=== PATIENT | male | born 1995 | race Caucasian/White ===

== ENCOUNTER 2019-06-03 20:51 | Emergency (ER) | payer SELFPAY ==
--- NOTE | 2019-06-03 22:00 | ER Document Report ---
ED Medical Screen (RME) - General Chief Complaint: Shortness Of Breath Stated Complaint: SHORTNESS OF BREATH Time Seen by Provider: 06/03/19 21:51 Primary Care Provider: MARGARET BILLY MD [Primary Care Provider] - Follow up as needed Notes: Patient is a 24-year-old male presents emergency department with a chief complaint of abdominal discomfort and shortness of breath. Patient reports abdominal discomfort and that is generalized started yesterday. Patient reports he has a decreased appetite but feels like he is having hunger pains. Patient also reports gas bubbles. Patient reports feeling bloated. Patient reports her last bowel movement was yesterday and normal for him. Patient reports earlier tonight he took a few hits of THC in the vape form and afterwards felt some shortness of breath and anxiety. Patient reports that he is concerned that maybe it was laced with something. Patient reports he does have a history of anxiety but does not take anything for it. TRAVEL OUTSIDE OF THE [place] IN LAST 30 DAYS: No - Related Data Allergies/Adverse Reactions: Penicillins Allergy (Unknown, Verified 03/10/12 12:36) Past Medical History - Social History Frequency of alcohol use: None Drug Abuse: Marijuana - Immunizations Immunizations up to date: Yes Hx Diphtheria, Pertussis, Tetanus Vaccination: Yes Physical Exam - Vital signs Vitals: Temp Pulse Resp BP Pulse Ox 98.0 F 96 18 133/78 H 99 06/03/19 21:38 06/03/19 21:38 06/03/19 21:38 06/03/19 21:38 06/03/19 21:38 - Respiratory Respiratory status: No respiratory distress Chest status: Nontender Breath sounds: Normal Chest palpation: Normal Course - Re-evaluation Re-evalutation: 06/03/19 22:00 I have greeted and performed a rapid initial assessment of this patient. A comprehensive ED assessment and evaluation of the patient, analysis of test results and completion of the medical decision making process will be conducted by additional ED providers. - Vital Signs Vital signs: Temp Pulse Resp BP Pulse Ox 98.0 F 96 18 133/78 H 99 06/03/19 21:38 06/03/19 21:38 06/03/19 21:38 06/03/19 21:38 06/03/19 21:38 Doctor's Discharge - Discharge Referrals: MARGARET BILLY MD [Primary Care Provider] - Follow up as needed
--- NOTE | 2019-06-03 22:32 | RADIOLOGY REPORT (SQ) ---
EXAM DESCRIPTION: XR CHEST 2 VIEWS COMPLETED DATE/TME: 06/03/2019 21:58 CLINICAL HISTORY: 24 years, Male, shortness of breath COMPARISON: None. NUMBER OF VIEWS: Two TECHNIQUE: Frontal and lateral radiograph are obtained LIMITATIONS: None. FINDINGS: Cardiac and mediastinal contours are normal in appearance. Lungs are clear. No pleural effusion or pneumothorax. IMPRESSION: No acute disease. copyright 2010 [employer]- All Rights Reserved
--- NOTE | 2019-06-03 22:36 | RADIOLOGY REPORT (SQ) ---
EXAM DESCRIPTION: XR ABDOMEN 2 VIEWS SUPINE ERECT COMPLETED DATE/TME: 06/03/2019 21:58 CLINICAL HISTORY: 24 years Male, abdominal pain and bloating COMPARISON: None. NUMBER OF VIEWS/TECHNIQUE: 3 FINDINGS: Intestinal gas pattern is within normal limits. Paucity of bowel gas. No suspicious calcification. Grossly intact skeletal structures. IMPRESSION: No acute findings.
[2019-06-03 23:04] LABS: ABSOLUTE LYMPHOCYTES (AUTO) 1.6 10^3/uL (0.5-4.7); ABSOLUTE MONOCYTES (AUTO) 0.7 10^3/uL (0.1-1.4); ABSOLUTE NEUT (AUTO) 8.6 10^3/uL (1.7-8.2); BASOPHILS % (AUTO) 0.3 % (0-2); EOSINOPHILS % (AUTO) 0.2 % (0-6); HEMATOCRIT 48.6 % (37.9-51.0); LYMPHOCYTES % (AUTO) 14.3 % (13-45); MEAN CORPUSCULAR HGB CONC 34.9 g/dL (32.0-36.0); MEAN CORPUSCULAR VOLUME 89 fl (80-97); MONOCYTES % (AUTO) 6.6 % (3-13); PLATELET COUNT 182 10^3/uL (150-450); RED BLOOD COUNT 5.47 10^6/uL (4.35-5.55); RED CELL DISTRIBUTION WIDTH 12.7 % (11.5-14.0); SEGMENTED NEUTROPHILS % (AUTO) 78.6 % (42-78); TOTAL CELLS COUNTED % (AUTO) 100 %
[2019-06-03 23:11] LABS: APPEARANCE,URINE SLIGHTLY-CLOUDY; BILIRUBIN,URINE NEGATIVE (NEGATIVE); COLOR,URINE YELLOW; GLUCOSE, URINE NEGATIVE (NEGATIVE); KETONES,URINE 20 mg/dL (NEGATIVE); LEUKOCYTE ESTERASE,URINE NEGATIVE (NEGATIVE); NITRITE,URINE NEGATIVE (NEGATIVE); PROTEIN,URINE 30 mg/dL (NEGATIVE); URINE SPECIFIC GRAVITY 1.027; UROBILINOGEN,URINE NEGATIVE mg/dL (<2.0)
[2019-06-03 23:22] LABS: ALBUMIN 5.6 g/dL (3.5-5.0); ALKALINE PHOSPHATASE 79 U/L (38-126); ANION GAP 13 (5-19); ASPARTATE AMINO TRANSFERASE 29 U/L (17-59); BILIRUBIN,DIRECT 0.2 mg/dL (0.0-0.4); BLOOD UREA NITROGEN 12 mg/dL (7-20); CALCIUM 10.7 mg/dL (8.4-10.2); CARBON DIOXIDE 24 mmol/L (22-30); CHLORIDE 103 mmol/L (98-107); GLUCOSE 94 mg/dL (75-110); TOTAL PROTEIN 8.7 g/dL (6.3-8.2)
[2019-06-03 23:29] LABS: URINE AMPHETAMINES SCREEN NEGATIVE; URINE BARBITURATES SCREEN NEGATIVE; URINE BENZODIAZEPINES SCREEN NEGATIVE; URINE COCAINE SCREEN NEGATIVE; URINE METHADONE SCREEN NEGATIVE; URINE PHENCYCLIDINE SCREEN NEGATIVE
[2019-06-03 23:30] LABS: URINE MARIJUANA (THC) SCREEN UNCONFIRMED POSITIVE
--- NOTE | 2019-06-04 01:37 | ER Document Report ---
ED General - General Chief Complaint: Shortness Of Breath Stated Complaint: SHORTNESS OF BREATH Time Seen by Provider: 06/03/19 21:51 Primary Care Provider: MARGARET BILLY MD [PEDIATRICS] - Follow up in 3-5 days Notes: 24-year-old male presents with body tingling, dyspnea, loss of appetite, gagging with eating, and abdominal discomfort today. Patient states he has been vaping THC extract and is unsure if it was laced with something. Patient also states he has a history of anxiety and is feeling anxious. Patient denies being on anything for anxiety. Patient denies any fever, nausea/vomiting, diarrhea, c onstipation, chest pain. TRAVEL OUTSIDE OF THE [place] IN LAST 30 DAYS: No - Related Data Allergies/Adverse Reactions: Penicillins Allergy (Unknown, Verified 03/10/12 12:36) Past Medical History - Social History Smoking Status: Former Smoker Frequency of alcohol use: None Drug Abuse: Marijuana Family History: None Patient has suicidal ideation: No Patient has homicidal ideation: No - Immunizations Immunizations up to date: Yes Hx Diphtheria, Pertussis, Tetanus Vaccination: Yes Review of Systems - Review of Systems Notes: Constitutional: Positive for body tingling. Negative for fever. HENT: Negative for sore throat. Eyes: Negative for visual changes. Cardiovascular: Negative for chest pain. Respiratory: Positive for shortness of breath. Gastrointestinal: Positive for abdominal cramping, nausea/vomiting. Negative for diarrhea. Genitourinary: Negative for dysuria. Musculoskeletal: Negative for back pain. Skin: Negative for rash. Neurological: Negative for headaches, weakness or numbness. 10 point ROS negative except as marked above and in HPI. Physical Exam - Vital signs Vitals: Temp Pulse Resp BP Pulse Ox 98.0 F 96 18 133/78 H 99 06/03/19 21:38 06/03/19 21:38 06/03/19 21:38 06/03/19 21:38 06/03/19 21:38 - Notes Notes: GENERAL: Well-appearing, well-nourished and in no acute distress. Mildly anxious. HEAD: Atraumatic, normocephalic. EYES: Pupils equal round and reactive to light, extraocular movements intact, sclera anicteric, conjunctiva are normal. NECK: Normal range of motion, supple without lymphadenopathy or JVD. LUNGS: Breath sounds clear to auscultation bilaterally and equal. No wheezes rales or rhonchi. HEART: Regular rate and rhythm without murmurs, rubs or gallops. ABDOMEN: Soft, nontender. No guarding, no rebound. No masses appreciated. EXTREMITIES: Normal range of motion, no pitting or edema. No clubbing or cyanosis. NEUROLOGICAL: Cranial nerves II through XII grossly intact. Normal speech, normal gait. PSYCH: Normal mood, normal affect. SKIN: Warm, Dry, normal turgor, no rashes or lesions noted. Course - Re-evaluation Re-evalutation: 06/04/19 nontoxic, well-appearing 24-year-old male presents with body tingling, dyspnea, loss of appetite, gagging with eating and states he has been vaping THC. Patient also has abdominal discomfort. Patient is non-hypoxic, not tachycardic, afebrile. Abdomen soft nontender. Regular rate and rhythm lungs clear to auscultation bilaterally. PE is otherwise unremarkable. Lab work is reassuring. Patient is p.o. tolerant. Discussed all results with patient. Patient prescribed Atarax for anxiety. Patient given close follow-up with PCP. Strict return precautions given. Patient voices understanding and agrees with plan of care. - Vital Signs Vital signs: Temp Pulse Resp BP Pulse Ox 98.2 F 81 16 135/87 H 99 06/04/19 00:56 06/04/19 00:56 06/04/19 00:56 06/04/19 00:56 06/04/19 00:56 - Laboratory Result Diagrams: 06/03/19 22:50 06/03/19 22:50 Laboratory results interpreted by me: 06/03/19 06/03/19 06/03/19 22:50 22:50 22:50 WBC 11.0 H Absolute Neuts (auto) 8.6 H Seg Neutrophils % 78.6 H Calcium 10.7 H Total Protein 8.7 H Albumin 5.6 H Urine Protein 30 H Urine Ketones 20 H Urine Ascorbic Acid 40 H Discharge - Discharge Clinical Impression: Nausea, Current cannabis vaping on some days Dyspnea Qualifiers: Dyspnea type: shortness of breath Qualified Code(s): R06.02 - Shortness of breath Condition: Stable Disposition: HOME, SELF-CARE Additional Instructions: Your work-up today was reassuring. Your chest x-ray was normal. Please take Atarax as needed for anxiety. Please follow-up with your primary care doctor listed in 3 to 5 days. Return immediately to ER if you start having any worsening symptoms, including abdominal pain, nausea/vomiting, fever, chest pain, worsening shortness of breath, coughing up blood, or any other symptoms that are concerning to you. Prescriptions: Hydroxyzine HCl [Atarax 10 mg Tablet] 50 mg PO Q6 #20 tablet Referrals: MARGARET BILLY MD [PEDIATRICS] - Follow up in 3-5 days
[2019-06-04 01:49] VITALS: BP 139/80
--- NOTE | 2019-06-04 13:03 | EKG REPORT ---
SEVERITY:- NORMAL ECG - SINUS RHYTHM : Confirmed by: Iram Flaherty 04-Jun-2019 13:02:16
== END 2019-06-04 01:49 | disposition home or self-care (01) ==
LOC: ER 20:51
DX: R11.0 Nausea (principal); R06.02 Shortness of breath; R06.00 Dyspnea, unspecified; F12.90 Cannabis use, unspecified, uncomplicated; Z88.0 Allergy status to penicillin
CPT/HCPCS: 36415; 71046; 74019; 80053; 80307; 81001; 83690; 85025; 93005; 93010; 99285

== ENCOUNTER 2019-06-09 18:23 | Emergency (ER) | payer SELFPAY ==
[2019-06-09] MEDS ORDERED: ASPIRIN 81 MG TABLET, CHEWABLE PO ONE (20:05)
--- NOTE | 2019-06-09 20:05 | ER Document Report ---
ED Medical Screen (RME) - General Chief Complaint: Chest Pain Stated Complaint: CHEST PAIN Time Seen by Provider: 06/09/19 20:01 Mode of Arrival: Ambulatory Information source: Patient Notes: 24-year-old male presented to ED for complaint of chest pain. He states last time he came in here for chest pain he was having an anxiety attack but he is not having any anxious surgery today. He states he has been having chest pain is about 2 or 3 this afternoon. He denies any shortness of breath or pain in his arm. He states he was sweating a little bit earlier. He is alert oriented respirations regular nonlabored speaking in full sentences. He states he has no pain right now but earlier it was a 4. He states he smoked for 2 years but quit in January denies use of alcohol does smoke weed. I have greeted and performed a rapid initial assessment of this patient. A comprehensive ED assessment and evaluation of the patient, analysis of test results and completion of medical decision making process will be conducted by an additional ED providers. TRAVEL OUTSIDE OF THE [place] IN LAST 30 DAYS: No - Related Data Allergies/Adverse Reactions: Penicillins Allergy (Unknown, Verified 06/09/19 20:00) Past Medical History - Immunizations Immunizations up to date: Yes Hx Diphtheria, Pertussis, Tetanus Vaccination: Yes Physical Exam - Vital signs Vitals: Temp Pulse Resp BP Pulse Ox 98.1 F 88 18 139/81 H 100 06/09/19 19:59 06/09/19 19:59 06/09/19 19:59 06/09/19 19:59 06/09/19 19:59 Course - Vital Signs Vital signs: Temp Pulse Resp BP Pulse Ox 98.1 F 88 18 139/81 H 100 06/09/19 19:59 06/09/19 19:59 06/09/19 19:59 06/09/19 19:59 06/09/19 19:59
[2019-06-09 20:52] LABS: ABSOLUTE LYMPHOCYTES (AUTO) 1.4 10^3/uL (0.5-4.7); ABSOLUTE MONOCYTES (AUTO) 0.4 10^3/uL (0.1-1.4); ABSOLUTE NEUT (AUTO) 3.8 10^3/uL (1.7-8.2); BASOPHILS % (AUTO) 0.2 % (0-2); EOSINOPHILS % (AUTO) 0.7 % (0-6); HEMOGLOBIN 15.9 g/dL (13.5-17.0); LYMPHOCYTES % (AUTO) 24.1 % (13-45); MEAN CORPUSCULAR HEMOGLOBIN 31.1 pg (27.0-33.4); MEAN CORPUSCULAR HGB CONC 35.3 g/dL (32.0-36.0); MEAN CORPUSCULAR VOLUME 88 fl (80-97); MONOCYTES % (AUTO) 7.1 % (3-13); PLATELET COUNT 176 10^3/uL (150-450); RED CELL DISTRIBUTION WIDTH 12.5 % (11.5-14.0); SEGMENTED NEUTROPHILS % (AUTO) 67.9 % (42-78); TOTAL CELLS COUNTED % (AUTO) 100 %; WHITE BLOOD COUNT 5.6 10^3/uL (4.0-10.5)
--- NOTE | 2019-06-09 20:52 | RADIOLOGY REPORT (SQ) ---
EXAM DESCRIPTION: [facility]: XR CHEST 2 VIEWS Views: 2 CLINICAL HISTORY: 24 years Male; Chest pain and sweating; COMPARISON: 06/03/2019 FINDINGS: Lungs: Lungs are clear, with no focal infiltrate, pneumothorax, or pleural effusion. No pulmonary nodules. Mediastinum: Mediastinum is within normal limits for this positioning. Bones: Bony structures are unremarkable. IMPRESSION: 1. No acute cardiothoracic abnormality.
[2019-06-09 21:04] LABS: ALBUMIN 5.1 g/dL (3.5-5.0); ALKALINE PHOSPHATASE 71 U/L (38-126); ANION GAP 11 (5-19); ASPARTATE AMINO TRANSFERASE 26 U/L (17-59); BILIRUBIN,DIRECT 0.2 mg/dL (0.0-0.4); BILIRUBIN,TOTAL 0.8 mg/dL (0.2-1.3); BLOOD UREA NITROGEN 13 mg/dL (7-20); CARBON DIOXIDE 25 mmol/L (22-30); CHLORIDE 104 mmol/L (98-107); GLUCOSE 88 mg/dL (75-110); POTASSIUM 4.2 mmol/L (3.6-5.0); TOTAL PROTEIN 8.1 g/dL (6.3-8.2)
--- NOTE | 2019-06-10 00:59 | ER Document Report ---
ED General - General Chief Complaint: Chest Pain Stated Complaint: CHEST PAIN Time Seen by Provider: 06/09/19 20:01 Primary Care Provider: NIKKI KEENAN MD [ACTIVE STAFF] - Follow up in 1 week Mode of Arrival: Ambulatory Notes: Patient is a 24-year-old male that comes to the emergency department for chief complaint of an episode today where he felt like his heart rate was racing, he felt discomfort over the front of his chest, he states he felt extremely anxious and he took a Vistaril that he was prescribed for this previously, he states symptoms did not go away when he took it so he came in for evaluation. Symptoms did resolve after this. He states he was seen previously for the same and diagnosed with anxiety. He smokes marijuana occasionally, stop smoking cigarettes 2 months ago, denies personal or family history of cardiac disease, denies recreational drugs, denies caffeine over the past couple of days. He denies any surgeries or diagnosed medical history. He denies recent long distance travel, lower extremity swelling, or family history of blood clots. He denies trauma. TRAVEL OUTSIDE OF THE [place] IN LAST 30 DAYS: No - Related Data Allergies/Adverse Reactions: Penicillins Allergy (Unknown, Verified 06/09/19 20:00) Past Medical History - General Information source: Patient - Social History Smoking Status: Former Smoker Frequency of alcohol use: None Drug Abuse: Marijuana Lives with: Family Family History: None Patient has suicidal ideation: No Patient has homicidal ideation: No Psychiatric Medical History: Reports: Hx Anxiety Surgical Hx: Negative - Immunizations Immunizations up to date: Yes Hx Diphtheria, Pertussis, Tetanus Vaccination: Yes Review of Systems - Review of Systems Constitutional: See HPI EENT: No symptoms reported Cardiovascular: See HPI Respiratory: No symptoms reported Gastrointestinal: No symptoms reported Genitourinary: No symptoms reported Male Genitourinary: No symptoms reported Musculoskeletal: No symptoms reported Skin: No symptoms reported Hematologic/Lymphatic: No symptoms reported Neurological/Psychological: See HPI Physical Exam - Vital signs Vitals: Temp Pulse Resp BP Pulse Ox 98.1 F 88 18 139/81 H 100 06/09/19 19:59 06/09/19 19:59 06/09/19 19:59 06/09/19 19:59 06/09/19 19:59 - Notes Notes: GENERAL: Alert, interacts well. Appears anxious but is not in distress HEAD: Normocephalic, atraumatic. EYES: Pupils equal, round, and reactive to light. Extraocular movements intact. ENT: Oral mucosa moist, tongue midline. Oropharynx unremarkable. Airway patent. LUNGS: Clear to auscultation bilaterally, no wheezes, rales, or rhonchi. No respiratory distress. HEART: Regular rate and rhythm. No murmur ABDOMEN: Soft, non-tender. Non-distended. Bowel sounds present in all 4 quadrants. GENITOURINARY: Deferred EXTREMITIES: Moves all 4 extremities spontaneously. No edema, normal radial and dorsalis pedis pulses bilaterally. No cyanosis. BACK: no cervical, thoracic, lumbar midline tenderness. No saddle anesthesia, normal distal neurovascular exam. Moves all extremities in full range of motion. NEUROLOGICAL: Alert and oriented x3. Normal speech. Cranial nerves II through XII grossly intact. PSYCH: Talks persistently, anxiously, I occasionally have to interrupt Course - Re-evaluation Re-evalutation: Patient talks endlessly about the symptoms he glucose and the possibilities of what he could have. I did finally explain patient's results at length. Patient has a heart score of 0. I do not see any evidence of pericarditis, pneumothorax, or any other concerning finding. CBC, chemistry, troponin negative. Chest x- ray and EKG unremarkable. Patient was very reassured by this, he has a lot of questions. Patient sleeps poorly, is frequently very anxious, frequently very stressed out. He does state that the Vistaril helps and he has plenty of this. He asked me a lot of details about taking this and about other options. I feel that patient needs to be on a chronic antianxiety medication daily with Vistaril for breakthrough and he agrees. Clinical picture is most consistent with anxiety and panic attacks and patient currently has no symptoms. Either way patient is stable for discharge. I did discuss symptoms to return for. Patient is not suicidal or homicidal. Patient states appreciation and agreement. Stable at time of discharge. - Vital Signs Vital signs: Temp Pulse Resp BP Pulse Ox 97.9 F 74 18 139/83 H 99 06/10/19 02:17 06/10/19 02:17 06/10/19 02:17 06/10/19 02:17 06/10/19 02:17 - Laboratory Result Diagrams: 06/09/19 20:18 06/09/19 20:18 Laboratory results interpreted by me: 06/09/19 20:18 Albumin 5.1 H - EKG Interpretation by Me Additional EKG results interpreted by me: EKG shows sinus rhythm at a rate of 85, QTC of 419, normal axis, no T wave inversions or ST segment changes in consecutive leads Discharge - Discharge Clinical Impression: Heart palpitations, Atypical chest pain, Anxiety Condition: Stable Disposition: HOME, SELF-CARE Additional Instructions: Your work-up does not show any concerning findings. Your evaluation is reassuring. I suspect this is from a rise in adrenaline, we refer to this as a panic attack. Try to improve your sleeping habits, go to bed at the same time every night, consider [id number] remedies such as melatonin, follow-up with primary care for additional management of anxiety. Continue Atarax as needed for anxiety/panic attack, you can take 1 to 2 pills every 6 hours as needed for this. Return if you worsen including worsening symptoms that are not resolved, passing out, fever, or any other concerning symptoms. Referrals: NIKKI KEENAN MD [ACTIVE STAFF] - Follow up in 1 week
[2019-06-10 02:08] VITALS: BP 139/83
--- NOTE | 2019-06-10 19:38 | EKG REPORT ---
SEVERITY:- NORMAL ECG - SINUS RHYTHM : Confirmed by: Marisela Rodriges MD 10-Jun-2019 19:37:08
== END 2019-06-10 02:07 | disposition home or self-care (01) ==
LOC: ER 18:23
DX: R00.2 Palpitations (principal); R07.89 Other chest pain; F41.9 Anxiety disorder, unspecified; Z79.899 Other long term (current) drug therapy; Z87.891 Personal history of nicotine dependence
CPT/HCPCS: 36415; 71046; 80053; 84484; 85025; 93005; 93010; 99285

== ENCOUNTER 2019-06-14 18:14 | Emergency (ER) | payer SELFPAY ==
[2019-06-14 18:23] VITALS: BP 140/74
--- NOTE | 2019-06-14 19:26 | ER Document Report ---
HPI - HPI Time Seen by Provider: 06/14/19 19:22 Pain Level: 2 Notes: 24-year-old male patient presents emergency department chief complaint of request for Tdap and request for medication refill. Patient reports he has severe anxiety and takes hydroxyzine. Patient states today he stepped on a nan nail and he cleaned the area well however he has not had a Tdap in 10 years. - REPRODUCTIVE Reproductive: DENIES: : Past Medical History - General Information source: Patient - Social History Smoking Status: Never Smoker Family History: None Patient has suicidal ideation: No Patient has homicidal ideation: No Psychiatric Medical History: Reports: Hx Anxiety - Immunizations Immunizations up to date: Yes Hx Diphtheria, Pertussis, Tetanus Vaccination: Yes Vertical Provider Document - CONSTITUTIONAL Notes: PHYSICAL EXAMINATION: GENERAL: Well-appearing, well-nourished and in no acute distress. HEAD: Atraumatic, normocephalic. EYES: Pupils equal round extraocular movements intact, conjunctiva are normal. ENT: Nares patent NECK: Normal range of motion LUNGS: No respiratory distress Musculoskeletal: Normal range of motion NEUROLOGICAL: Normal speech, normal gait. PSYCH: Normal mood, normal affect. SKIN: Tiny puncture wound noted to posterior right heel. - INFECTION CONTROL TRAVEL OUTSIDE OF THE [place] IN LAST 30 DAYS: No Course - Re-evaluation Re-evalutation: Tdap updated, medication refilled. - Vital Signs Vital signs: Temp Pulse Resp BP Pulse Ox 98.9 F 103 H 20 140/74 H 98 06/14/19 18:22 06/14/19 18:22 06/14/19 18:22 06/14/19 18:22 06/14/19 18:22 Discharge - Discharge Clinical Impression: Encounter for medication refill, Encounter for Tdap Condition: Stable Disposition: HOME, SELF-CARE Instructions: Tetanus Immunization Given (OM) Additional Instructions: Your tetanus shot was updated today. A prescription for your hydroxyzine was sent to your pharmacy. Please follow-up with your primary care doctor. Prescriptions: Hydroxyzine Pamoate [Vistaril 25 mg Capsule] 1 - 2 cap PO Q6H PRN #30 capsule PRN Reason: Anxiety/Agitation
[2019-06-14] MEDS ORDERED: DIPH/PERTUSS(ACELL)/TETANUS VAC/PF 0.5 ML SYR (>=10YO) IM ONE (19:28)
== END 2019-06-14 20:40 | disposition home or self-care (01) ==
LOC: ER 18:14
DX: S91.331A Puncture wound without foreign body, right foot, initial encounter (principal); W45.0XXA Nail entering through skin, initial encounter; Z76.0 Encounter for issue of repeat prescription; Z23 Encounter for immunization
CPT/HCPCS: 90471; 90715; 99282

== ENCOUNTER 2019-07-05 20:03 | Emergency (ER) | payer OTHER ==
--- NOTE | 2019-07-05 21:30 | ER Document Report ---
ED Medical Screen (RME) - General Chief Complaint: Chest Pain Stated Complaint: OCCASIONAL CHEST PAIN,LEFT LEG PAIN,NECK PAIN Time Seen by Provider: 07/05/19 21:12 Mode of Arrival: Ambulatory Information source: Patient Notes: Patient is a 24-year-old male presents emergency department with multiple complaints. He has multiple vague complaints that have been ongoing for the last few months to include neck pain, chest pain, left leg pain, headaches. He has been talking to family members and gathering all of his family history and is concerned because all of his grandparents have heart disease. Patient does report a history of anxiety and states that he has had PVCs and arrhythmias from his anxiety. It is difficult to keep patient on task. He did have an EKG performed in triage which showed a sinus rhythm with no ST segment elevations or depressions. Lung sounds clear and equal bilaterally. Patient is cooperative but anxious. I have greeted and performed a rapid initial assessment of this patient. A comprehensive ED assessment and evaluation of the patient, analysis of test results and completion of the medical decision making process will be conducted by additional ED providers. I have specifically instructed the patient or family members with the patient to immediately return to any nursing staff should anything change in the patient's condition or with their chief complaint. TRAVEL OUTSIDE OF THE [place] IN LAST 30 DAYS: No - Related Data Allergies/Adverse Reactions: Penicillins Allergy (Unknown, Verified 07/05/19 20:54) Past Medical History - Social History Chew tobacco use (# tins/day): No Frequency of alcohol use: None Drug Abuse: Marijuana Psychiatric Medical History: Reports: Hx Anxiety - Immunizations Immunizations up to date: Yes Hx Diphtheria, Pertussis, Tetanus Vaccination: Yes Physical Exam - Vital signs Vitals: Temp Pulse Resp BP Pulse Ox 98.1 F 85 18 137/70 H 100 07/05/19 20:22 07/05/19 20:22 07/05/19 20:22 07/05/19 20:22 07/05/19 20:22 Course - Vital Signs Vital signs: Temp Pulse Resp BP Pulse Ox 98.1 F 85 18 137/70 H 100 07/05/19 20:22 07/05/19 20:22 07/05/19 20:22 07/05/19 20:22 07/05/19 20:22
[2019-07-05 22:46] LABS: ABSOLUTE EOSINOPHILS # (AUTO) 0.1 10^3/uL (0.0-0.6); ABSOLUTE LYMPHOCYTES (AUTO) 2.4 10^3/uL (0.5-4.7); ABSOLUTE MONOCYTES (AUTO) 0.6 10^3/uL (0.1-1.4); TOTAL CELLS COUNTED % (AUTO) 100 %
[2019-07-05 22:57] LABS: ABSOLUTE NEUT (AUTO) 3.6 10^3/uL (1.7-8.2); BASOPHILS % (AUTO) 0.3 % (0-2); EOSINOPHILS % (AUTO) 1.7 % (0-6); HEMATOCRIT 44.4 % (37.9-51.0); HEMOGLOBIN 15.6 g/dL (13.5-17.0); LYMPHOCYTES % (AUTO) 35.4 % (13-45); MEAN CORPUSCULAR HEMOGLOBIN 31.8 pg (27.0-33.4); MEAN CORPUSCULAR HGB CONC 35.1 g/dL (32.0-36.0); MEAN CORPUSCULAR VOLUME 91 fl (80-97); MONOCYTES % (AUTO) 8.4 % (3-13); PLATELET COUNT 180 10^3/uL (150-450); RED CELL DISTRIBUTION WIDTH 12.7 % (11.5-14.0); SEGMENTED NEUTROPHILS % (AUTO) 54.2 % (42-78); WHITE BLOOD COUNT 6.6 10^3/uL (4.0-10.5)
[2019-07-05 23:02] LABS: ALBUMIN 5.3 g/dL (3.5-5.0); ALKALINE PHOSPHATASE 68 U/L (38-126); ANION GAP 13 (5-19); ASPARTATE AMINO TRANSFERASE 26 U/L (17-59); BILIRUBIN,DIRECT 0.3 mg/dL (0.0-0.4); BILIRUBIN,TOTAL 0.5 mg/dL (0.2-1.3); BLOOD UREA NITROGEN 14 mg/dL (7-20); CALCIUM 10.2 mg/dL (8.4-10.2); CARBON DIOXIDE 27 mmol/L (22-30); CHLORIDE 102 mmol/L (98-107); GLUCOSE 89 mg/dL (75-110); POTASSIUM 4.1 mmol/L (3.6-5.0); TOTAL PROTEIN 8.4 g/dL (6.3-8.2)
--- NOTE | 2019-07-06 00:01 | ER Document Report ---
ED General - General Chief Complaint: Chest Pain Stated Complaint: OCCASIONAL CHEST PAIN,LEFT LEG PAIN,NECK PAIN Time Seen by Provider: 07/05/19 21:12 Mode of Arrival: Ambulatory TRAVEL OUTSIDE OF THE [place] IN LAST 30 DAYS: No - HPI Notes: Patient is a 24-year-old male who presents to the emergency department for evaluation of right-sided neck pain, headaches, chest pain, left leg pain, frequent PVCs, and possible arrhythmias. He also has a history of anxiety, and is no longer taking his Vistaril. The patient states that for about a month he has had right sided anterior neck pain. He describes it as sharp, then states it is dull following, and he feels like something is "blasting on his throat." He denies any difficulty speaking or swallowing. He admits he has a wisdom tooth, thinks it is been moving his other teeth, and is concerned that he has an infection. The patient is also concerned about his thyroid, as his mom has had "multiple tumors" on his thyroid and he thought that could be causing his symptoms. Patient also states he has had some chest pain and some frequent palpitations. He states he feels he is experiencing "premature ventricular contractions" and he is concerned that he has had arrhythmias. The patient also states he has been getting random pain down the anterior aspect of his left leg. All of these problems have been going on intermittently for months. He states he is given up marijuana, given up smoking, given up caffeine, and the symptoms still persist. - Related Data Allergies/Adverse Reactions: Penicillins Allergy (Unknown, Verified 07/05/19 20:54) Home Medications: Patient recently discontinued Vistaril Past Medical History - General Information source: Patient - Social History Smoking Status: Former Smoker Chew tobacco use (# tins/day): No Frequency of alcohol use: None Drug Abuse: Marijuana Family History: CAD Patient has suicidal ideation: No Patient has homicidal ideation: No Psychiatric Medical History: Reports: Hx Anxiety - Immunizations Immunizations up to date: Yes Hx Diphtheria, Pertussis, Tetanus Vaccination: Yes Review of Systems - Review of Systems Constitutional: No symptoms reported EENT: See HPI Cardiovascular: See HPI Musculoskeletal: See HPI Neurological/Psychological: See HPI -: Yes All other systems reviewed and negative Physical Exam - Vital signs Vitals: Temp Pulse Resp BP Pulse Ox 98.1 F 85 18 137/70 H 100 07/05/19 20:22 07/05/19 20:22 07/05/19 20:22 07/05/19 20:22 07/05/19 20:22 - Notes Notes: Is a very pleasant 24-year-old male who appears his stated age. He has rapid speech, appears very anxious. He is in no acute distress. Vital signs reviewed, please refer to chart. Head is normocephalic, atraumatic. Pupils equal round, reactive to light. Oral mucosa is moist. Uvula is midline. Dentition is in good condition. Neck is supple without meningismus. No thyromegaly. No significant lymphadenopathy, no noted tenderness. Heart is regular rate and rhythm. Lungs are clear to auscultation bilaterally. Abdomen is soft, nontender, normoactive bowel sounds throughout. Extremities without cyanosis, clubbing. Posterior calves are nontender. Peripheral pulses are equal. Skin is warm and dry. Patient is awake, alert, oriented x3. Cranial nerves II - XII are grossly intact without focal neurological deficits. Strength is plus 5 out of 5 bilateral upper and lower extremities. Sensation is intact. Reflexes symmetrical. Intact [id number], rapid alternating movements, [id number]-[id number]. Course - Re-evaluation Re-evalutation: 07/06/19 00:03 Patient presents to the emergency department for evaluation. He had initial laboratory investigations as ordered through triage. His work-up here is entirely unremarkable. My strong suspicion is that all of his symptoms are secondary to anxiety. If he does have an incoming wisdom tooth in the right m andibular region, which I am not able to appreciate on exam, this could be causing his anterior neck pain. Otherwise, he has normal lab work, normal EKG. Is a normal neurological exam. The patient was heavily reassured. I explained to him, however, that he needs to establish care with a primary care provider. He voiced understanding to this. [facility]. He is to return to the ED with worsening or new concerning symptoms of any sort. - Vital Signs Vital signs: Temp Pulse Resp BP Pulse Ox 98.1 F 85 18 137/70 H 100 07/05/19 20:22 07/05/19 20:22 07/05/19 20:22 07/05/19 20:22 07/05/19 20:22 - Laboratory Result Diagrams: 07/05/19 22:30 07/05/19 22:30 Laboratory results interpreted by me: 07/05/19 22:30 Total Protein 8.4 H Albumin 5.3 H - EKG Interpretation by Me Additional EKG results interpreted by me: 07/06/19 00:03 Sinus mechanism with a rate of 87 bpm. Normal axis and intervals. No acute ST changes concerning for ischemia or infarction. Discharge - Discharge Clinical Impression: Neck pain on right side, Palpitations Chest pain Qualifiers: Chest pain type: unspecified Qualified Code(s): R07.9 - Chest pain, unspecified Condition: Stable Disposition: HOME, SELF-CARE Instructions: Chest Pain of Unclear Cause ([facility]), Palpitations (Irregular or Rapid Heartrate) ([facility]) Additional Instructions: No clear cause was found for your symptoms today. Your blood work and EKG were unremarkable. [facility] with the [facility] in 1 to 2 weeks. Return to the emergency department with worsening or new concerning symptoms of any sort.
[2019-07-06 00:10] VITALS: BP 121/79
--- NOTE | 2019-07-06 06:49 | EKG REPORT ---
SEVERITY:- NORMAL ECG - SINUS RHYTHM : Confirmed by: Adolph Kang MD 06-Jul-2019 06:49:23
== END 2019-07-06 00:09 | disposition home or self-care (01) ==
LOC: ER 20:03
DX: M54.2 Cervicalgia (principal); R00.2 Palpitations; R07.9 Chest pain, unspecified; M79.605 Pain in left leg; Z88.0 Allergy status to penicillin
CPT/HCPCS: 36415; 80053; 84484; 85025; 93005; 93010; 99285

== ENCOUNTER 2019-07-27 04:35 | Emergency (ER) | payer OTHER ==
[2019-07-27] MEDS ORDERED: NORMAL SALINE 1000 ML 1,000 ML IV ONE (05:26)
--- NOTE | 2019-07-27 05:26 | ER Document Report ---
ED Medical Screen (RME) - General Chief Complaint: Chest Pain Stated Complaint: CHEST/HEAD PAIN Time Seen by Provider: 07/27/19 05:09 Notes: 24-year-old male who presents to the emergency department with multiple complaints. Patient states that he has had paresthesias with tingling in numbness in his hands arms bilaterally as well as right-sided neck pain, headaches and chest discomfort. He has a history of anxiety and was taking Atarax at one point. He states that he has not taken Atarax in the past 2 months. He denies shortness of breath, dizziness or nausea and vomiting. He is using Rogaine and finasteride for hair loss. He took his last dose last night. Exam: Thin 24-year-old male with receding hairline and no acute distress HEENT: Poor dentition, airway patent Lungs clear, heart tachycardic, neuro nonfocal EKG reveals sinus tachycardia with no acute ST or T wave abnormality. Left atrial abnormality with possible ventricular hypertrophy. Patient has some pending labs which will be assessed as a part of his evaluation during his ER visit. Differential diagnoses include electrolyte imbalance, dehydration, anxiety, adverse reaction to minoxidil and finasteride. I have greeted and performed a rapid initial assessment of this patient. A comprehensive ED assessment and evaluation of the patient, analysis of test results and completion of medical decision making process will be conducted by an additional ED providers. TRAVEL OUTSIDE OF THE [place] IN LAST 30 DAYS: No - Related Data Allergies/Adverse Reactions: Penicillins Allergy (Unknown, Verified 07/05/19 20:54) Home Medications: PATIENT DENIES MEDICATIONS AT HOME. Past Medical History - Social History Chew tobacco use (# tins/day): No Frequency of alcohol use: Rare Drug Abuse: Marijuana Psychiatric Medical History: Reports: Hx Anxiety - Immunizations Immunizations up to date: Yes Hx Diphtheria, Pertussis, Tetanus Vaccination: Yes Physical Exam - Vital signs Vitals: Temp Pulse Resp BP Pulse Ox 99.0 F 127 H 22 H 157/53 H 100 07/27/19 04:52 07/27/19 04:52 07/27/19 04:52 07/27/19 04:52 07/27/19 04:52 Course - Vital Signs Vital signs: Temp Pulse Resp BP Pulse Ox 99.0 F 127 H 22 H 157/53 H 100 07/27/19 04:52 07/27/19 04:52 07/27/19 04:52 07/27/19 04:52 07/27/19 04:52
[2019-07-27 05:35] LABS: ABSOLUTE EOSINOPHILS # (AUTO) 0.1 10^3/uL (0.0-0.6); ABSOLUTE LYMPHOCYTES (AUTO) 2.3 10^3/uL (0.5-4.7); ABSOLUTE MONOCYTES (AUTO) 0.6 10^3/uL (0.1-1.4); ABSOLUTE NEUT (AUTO) 4.2 10^3/uL (1.7-8.2); BASOPHILS % (AUTO) 0.3 % (0-2); EOSINOPHILS % (AUTO) 1.6 % (0-6); HEMATOCRIT 45.5 % (37.9-51.0); HEMOGLOBIN 16.1 g/dL (13.5-17.0); LYMPHOCYTES % (AUTO) 32.1 % (13-45); MEAN CORPUSCULAR HEMOGLOBIN 31.7 pg (27.0-33.4); MEAN CORPUSCULAR HGB CONC 35.4 g/dL (32.0-36.0); MEAN CORPUSCULAR VOLUME 90 fl (80-97); MONOCYTES % (AUTO) 7.7 % (3-13); PLATELET COUNT 215 10^3/uL (150-450); RED BLOOD COUNT 5.08 10^6/uL (4.35-5.55); SEGMENTED NEUTROPHILS % (AUTO) 58.3 % (42-78); TOTAL CELLS COUNTED % (AUTO) 100 %; WHITE BLOOD COUNT 7.1 10^3/uL (4.0-10.5)
[2019-07-27 05:43] LABS: INTERNATIONAL RATION (INR) 0.96; PROTHROMBIN TIME 12.8 SEC (11.4-15.4)
[2019-07-27 06:08] LABS: ALBUMIN 5.1 g/dL (3.5-5.0); ALKALINE PHOSPHATASE 73 U/L (38-126); ANION GAP 12 (5-19); ASPARTATE AMINO TRANSFERASE 25 U/L (17-59); BILIRUBIN,TOTAL 0.8 mg/dL (0.2-1.3); BLOOD UREA NITROGEN 12 mg/dL (7-20); CARBON DIOXIDE 25 mmol/L (22-30); CHLORIDE 103 mmol/L (98-107); CREATINE KINASE 58 U/L (55-170); GLUCOSE 139 mg/dL (75-110); POTASSIUM 3.8 mmol/L (3.6-5.0); TOTAL PROTEIN 7.9 g/dL (6.3-8.2)
--- NOTE | 2019-07-27 06:13 | RADIOLOGY REPORT (SQ) ---
EXAM DESCRIPTION: XR CHEST 2 VIEWS COMPLETED DATE/TME: 07/27/2019 00:00 CLINICAL HISTORY: 24 years Male, PAIN COMPARISON:Jun 09 2019 NUMBER OF VIEWS/TECHNIQUE: 2, Frontal, Lateral FINDINGS: Increased lung volume, clear parenchyma, normal cardiac silhouette, and intact bony thorax. IMPRESSION: No acute cardiopulmonary findings.
[2019-07-27 06:26] LABS: TROPONIN I < 0.012 ng/mL
[2019-07-27 07:04] LABS: FREE T4 (FREE THYROXINE) 1.18 ng/dL (0.78-2.19)
[2019-07-27 07:18] LABS: THYROID STIMULATING HORMONE 3.41 uIU/mL (0.47-4.68)
[2019-07-27 07:24] LABS: AMORPHOUS SEDIMENT,URINE 1+ /HPF; APPEARANCE,URINE CLOUDY; BILIRUBIN,URINE NEGATIVE (NEGATIVE); COLOR,URINE YELLOW; GLUCOSE, URINE NEGATIVE (NEGATIVE); KETONES,URINE NEGATIVE (NEGATIVE); PROTEIN,URINE NEGATIVE (NEGATIVE)
--- NOTE | 2019-07-27 07:44 | EKG REPORT ---
SEVERITY:- ABNORMAL ECG - SINUS TACHYCARDIA WANDY, CONSIDER BIATRIAL ABNORMALITIES CONSIDER RIGHT VENTRICULAR HYPERTROPHY : Confirmed by: Adolph Kang MD 27-Jul-2019 07:44:10
[2019-07-27 07:50] LABS: URINE AMPHETAMINES SCREEN NEGATIVE; URINE BARBITURATES SCREEN NEGATIVE; URINE BENZODIAZEPINES SCREEN NEGATIVE; URINE COCAINE SCREEN NEGATIVE; URINE METHADONE SCREEN NEGATIVE; URINE PHENCYCLIDINE SCREEN NEGATIVE
[2019-07-27 07:56] LABS: URINE MARIJUANA (THC) SCREEN UNCONFIRMED POSITIVE
[2019-07-27] MEDS ORDERED: HYDROXYZINE HCL 10 MG TABLET PO ONE (08:43)
--- NOTE | 2019-07-27 08:49 | ER Document Report ---
ED General <DUDLEY SHEA - Last Filed: 07/27/19 11:20> - General TRAVEL OUTSIDE OF THE [place] IN LAST 30 DAYS: No - Related Data Home Medications: PATIENT DENIES MEDICATIONS AT HOME. <ODALIS REECE - Last Filed: 07/27/19 11:40> - General Chief Complaint: Chest Pain Stated Complaint: CHEST/HEAD PAIN Time Seen by Provider: 07/27/19 05:09 - HPI Notes: 24-year-old male who presents to the emergency department with multiple complaints. Patient states that he has had paresthesias with tingling in numbness in his hands arms bilaterally as well as right-sided neck pain, headaches and chest discomfort. He has a history of anxiety and was taking Atarax at one point. He states that he has not taken Atarax in the past 2 months. He denies shortness of breath, dizziness or nausea and vomiting. He is using Rogaine and finasteride for hair loss. He took his last dose last night. We note that this gentleman was seen in this emergency department approximately 2 weeks ago with similar presentation. He was felt at that time to be having symptoms related to anxiety. Patient reports use of cannabis in the past but says he is used none of this recently. He denies any other type of drug abuse. He denies abuse of alcohol. He denies any hallucinations. He denies any suicidal/homicidal ideation. (ODALIS REECE) - Related Data Allergies/Adverse Reactions: Penicillins Allergy (Unknown, Verified 07/05/19 20:54) Past Medical History - General Information source: Patient, [facility] Records - Social History Smoking Status: Former Smoker Chew tobacco use (# tins/day): No Frequency of alcohol use: Rare Drug Abuse: Marijuana Family History: CAD Patient has suicidal ideation: No Patient has homicidal ideation: No Psychiatric Medical History: Reports: Hx Anxiety - Immunizations Immunizations up to date: Yes Hx Diphtheria, Pertussis, Tetanus Vaccination: Yes <ODALIS REECE - Last Filed: 07/27/19 11:40> Review of Systems <ODALIS REECE - Last Filed: 07/27/19 11:40> - Review of Systems Notes: Constitutional: Negative for fever. HENT: Negative for sore throat. Eyes: Negative for visual changes. Cardiovascular: As per HPI. Respiratory: As per HPI. Gastrointestinal: Negative for abdominal pain, vomiting or diarrhea. Genitourinary: Negative for dysuria. Musculoskeletal: Negative for back pain. Skin: Negative for rash. Neurological: As per HPI. 10 point ROS negative except as marked above and in HPI. (ODALIS REECE) Physical Exam <ODALIS REECE - Last Filed: 07/27/19 11:40> - Vital signs Vitals: Temp Pulse Resp BP Pulse Ox 99.0 F 127 H 22 H 157/53 H 100 07/27/19 04:52 07/27/19 04:52 07/27/19 04:52 07/27/19 04:52 07/27/19 04:52 - Notes Notes: GENERAL: Slender male approximately stated age who appears somewhat anxious. SKIN: Good turgor no rashes. HEAD: Normocephalic atraumatic. EYES: PERRLA. EOMI. Conjunctivae and sclerae clear. EARS: CANALS AND TMS CLEAR. NOSE: CLEAR. MOUTH: Moist mucosa. Good dentition. No stridor or edema. No drooling. NECK: Supple. No masses or thyromegaly. No adenopathy. Carotids 2+ without bruits. No JVD. BACK: Symmetrical without tenderness. CHEST: Respirations unlabored. Breath sounds clear and symmetrical. HEART: Tachycardic regular rhythm. No murmur gallop or rub. ABDOMEN: Soft nontender without masses, organomegaly or rebound. Bowel sounds normally active. No bruits. GENITALIA: Deferred. EXTREMITIES: No edema. No calf tenderness. Cap refill less than 1.5 seconds. Dorsalis pedis and posterior tibial pulses 3+ and symmetrical. NEUROLOGICAL: GCS 15. Alert and oriented x3. Normal gait. Fluent speech. Cranial nerves II through XII intact. Sensorimotor and cerebellar normal. Normal tone. PSYCHIATRIC: Anxious affect. (ODALIS REECE) Course - Laboratory Result Diagrams: 07/27/19 05:25 07/27/19 05:25 <DUDLEY SHEA - Last Filed: 07/27/19 11:20> - Laboratory Result Diagrams: 07/27/19 05:25 07/27/19 05:25 <ODALIS REECE - Last Filed: 07/27/19 11:40> - Re-evaluation Re-evalutation: 07/27/19 08:47 Thyroid studies here are normal. Exam is essentially normal. EKG remarkable only for sinus tachycardia. Prior records also reviewed on this gentleman. I talked with him at some length explaining think he is having anxiety and mild panic attacks. This could possibly be aggravated by the vasodilator effect of the minoxidil he has been using topically for his alopecia. I offered evaluation by behavioral health services and he welcomes this. (ODALIS REECE) - Vital Signs Vital signs: Temp Pulse Resp BP Pulse Ox 98.3 F 61 16 116/58 L 99 07/27/19 10:50 07/27/19 10:50 07/27/19 10:50 07/27/19 10:50 07/27/19 10:50 - Laboratory Laboratory results interpreted by me: 07/27/19 07/27/19 05:25 07:05 Glucose 139 H Albumin 5.1 H Urine Urobilinogen 2.0 H Discharge <DUDLEY SHEA - Last Filed: 07/27/19 11:20> <ODALIS REECE - Last Filed: 07/27/19 11:40> - Discharge Clinical Impression: Generalized anxiety disorder with panic attacks Condition: Stable Disposition: HOME, SELF-CARE Additional Instructions: You have been evaluated by both medical and behavioral health teams for anxiety and have been deemed appropriate for discharge. While in the emergency department you received the following services: Medical screening and assessment, nursing services, dietary services, pharmacological services, one-on-one counseling and/or psychotherapy, and environmental services. You have been provided with an outpatient mental health resource list in the event you change your mind regarding mental health services and medication management. AT ANY TIME, IF YOUR SYMPTOMS CHANGE SIGNIFICANTLY OR WORSEN OR YOU DEVELOP NEW SYMPTOMS, RETURN TO THE EMERGENCY DEPARTMENT IMMEDIATELY FOR RE-EVALUATION. Prescriptions: Clonazepam [Klonopin 1 mg Tablet] 1 mg PO BID PRN 7 Days #14 tablet PRN Reason: Referrals: [facility] [Provider Group] - Follow up as needed
[2019-07-27 12:02] VITALS: BP 115/56
--- NOTE | 2019-07-27 12:49 | PSYCHOLOGICAL NOTE ---
Psych Note - Psych Note Date seen by psych provider: 07/27/19 Time seen by psych provider: 11:00 Psych Note: Patient is a 24-year-old male who presents to ED via POV with medical complaints of "pins and needs going through his arms and chest pains." Patient reports somatic complaints such as [id number] going through his arms and heaviness in the chest. Patient denies this is an episode of anxiety. Patient reports he informed the attending physician that this was a medical concern that is not related to anxiety and or panic attacks. Patient reports that he is aware of when he has an episode of anxiety. Patient states he has been prescribed Atarax and hydrochloride in the past for concerns with anxiety. Patient reports he is not interested in mental health services or medication recommendations. Patient is alert and oriented to person, place, time and circumstance. Mood is normal with congruent affect. Patient denies suicidal and homicidal ideations. Delusions are absent and behavior is congruent with an intact reality based presentation (i.e., organized and linear through processes). There is no observed behavior that suggests patient is responding to internal stimuli. Patient is able to engage in organized, rational thought processes. Patient is able to express needs and wants in a logical manner. Patient denies current auditory and visual hallucinations. Eye contact is appropriate. Conversational speech is within normal rate, tone, and prosody. Intellectual ability appears to be within average range. Attention and concentration are good. Insight, judgment and impulse control are currently good. Impression/Plan: Patient is cleared from acute psychiatric services. Patient denies suicidal and homicidal ideations. Patient presented to ED with medical complaints. Patient denies current presentation is related to any symptoms of a panic attack or anxiety. Patient declined mental health services and medication recommendations. Patient was encouraged to reconsider while he was in the ED. Dr. Stauffer was consulted on the care and management of this patient; attending physician is in agreement with recommendations and disposition.
== END 2019-07-27 12:01 | disposition home or self-care (01) ==
LOC: ER 04:35
DX: F41.1 Generalized anxiety disorder (principal); F41.0 Panic disorder [episodic paroxysmal anxiety]; R07.9 Chest pain, unspecified; R51 Headache; R20.0 Anesthesia of skin; M54.2 Cervicalgia; Z87.891 Personal history of nicotine dependence
CPT/HCPCS: 93005; 99285; 96360; 36415; 84439; 82553; 80307 ×2; 82550; 84443; 85025; 85610; 80053; 81001; 84484; 71046; 93010; J7030

== ENCOUNTER 2019-08-02 16:21 | Emergency (ER) | payer OTHER ==
--- NOTE | 2019-08-02 16:46 | ER Document Report ---
HPI - HPI Patient complains to provider of: SOB Time Seen by Provider: 08/02/19 16:42 Onset: Yesterday - Last night Onset/Duration: Sudden Quality of pain: No pain Context: 24-year-old male with no previous history presents to the emergency department with complaints of shortness of breath, fatigue, lightheadedness and weakness. He reports his symptoms started last night. He denies headache, fever nausea vomiting diarrhea. Reports he is eating, drinking, bowel movement and voiding as normal. Patient reports he has had a little bit of cough no production and some runny nose. Denies sore throat. Reports taste without problems. Patient does not work. No known exposure to COVID. Reports his mom may have had a fever this morning. Associated Symptoms: Nonproductive cough Exacerbated by: Denies Relieved by: Denies Similar symptoms previously: No Recently seen / treated by doctor: No - REPRODUCTIVE Reproductive: DENIES: : Past Medical History - General Information source: Patient - Social History Smoking Status: Former Smoker Cigarette use (# per day): No Frequency of alcohol use: None Drug Abuse: Marijuana Occupation: none Lives with: Family Family History: CAD Patient has suicidal ideation: No Patient has homicidal ideation: No Psychiatric Medical History: Reports: Hx Anxiety - Immunizations Immunizations up to date: Yes Hx Diphtheria, Pertussis, Tetanus Vaccination: Yes Vertical Provider Document - CONSTITUTIONAL Agree With Documented VS: Yes Exam Limitations: No Limitations General Appearance: WD/WN, No Apparent Distress - INFECTION CONTROL TRAVEL OUTSIDE OF THE [place] IN LAST 30 DAYS: No - NECK Neck: Supple - RESPIRATORY Respiratory: No Respiratory Distress - CARDIOVASCULAR Cardiovascular: Regular Rate - NEURO Level of Consciousness: Awake, Alert, Appropriate - DERM Integumentary: Warm, Dry Notes: Full physical exam could not be performed due to COVID-19 isolation protocols. Course - Re-evaluation Re-evalutation: 08/02/19 16:53 The patient was evaluated during the global COVID-19 pandemic, and that diagnosis was suspected/considered upon their initial presentation. Their evaluation, treatment and testing was consistent with current guidelines for patients who present with complaints or symptoms that may be related to COVID- 19. 08/02/19 18:08 Patient answers all questions clearly no shortness of breath vital signs stable, flu test negative EKG negative. Patient instructed on all results. Instructed on the importance of staying home group home in place good handwashing return for any concerns. 08/02/19 21:44 Laboratory 08/02/19 17:28 Influenza A (Rapid) NEGATIVE Influenza B (Rapid) NEGATIVE - Vital Signs Vital signs: 08/02/19 17:08 98.2, 90, 121/71 , 16, 99% RA - EKG Interpretation by Me EKG shows normal: Sinus rhythm Rate: Normal Rhythm: NSR Additional EKG results interpreted by me: 08/02/19 18:[address] elevation no T wave inversion QTC 398 Discharge - Discharge Clinical Impression: Shortness of breath, Weakness, Light-headed feeling Fatigue Qualifiers: Fatigue type: unspecified Qualified Code(s): R53.83 - Other fatigue Condition: Stable Disposition: HOME, SELF-CARE Additional Instructions: *You have been evaluated for fatigue, lightheaded, weakness, shortness of breath *Your influenza test was negative *Increase fluids *Wash your hands well, practice social distancing, Fdc in place Stay Home! *Monitor your temperature, take Tylenol as indicated *Follow up with a primary care provider within 1 week for recheck *Return to ED for worsening cough, difficulty breathing, concerns, needs
[2019-08-02 17:59] LABS: A TYPE INFLUENZA AG NEGATIVE (NEGATIVE); B INFLUENZA AG NEGATIVE (NEGATIVE)
--- NOTE | 2019-08-02 18:07 | EKG REPORT ---
SEVERITY:- NORMAL ECG - SINUS RHYTHM : Confirmed by: Iram Flaherty 02-Aug-2019 18:06:25
[2019-08-02 18:38] VITALS: BP 119/74
== END 2019-08-02 18:37 | disposition home or self-care (01) ==
LOC: ER 16:21
DX: R06.02 Shortness of breath (principal); R05 Cough; R53.83 Other fatigue; R42 Dizziness and giddiness; R53.1 Weakness
CPT/HCPCS: 87804; 93005; 93010; 99285

== ENCOUNTER 2019-08-23 14:23 | Emergency (ER) | payer OTHER ==
[2019-08-23] MEDS ORDERED: MAG HYDROX/AL HYDROX/SIMETH SUSP 30 ML UDCUP PO ONE (14:40)
[2019-08-23] MEDS ORDERED: LIDOCAINE 2% VISCOUS SOLN 15 ML UDCUP PO ONE (14:40)
[2019-08-23] MEDS ORDERED: METOCLOPRAMIDE HCL ORAL SOLN 10 MG/10 ML UDCUP PO ONE (14:40)
--- NOTE | 2019-08-23 14:43 | ER Document Report ---
ED General - General Chief Complaint: Shortness Of Breath Stated Complaint: shortness of breath Time Seen by Provider: 08/23/19 14:24 Primary Care Provider: MARYSOL THOMSON MD [ACTIVE STAFF] - Follow up as needed Notes: CHIEF COMPLAINT: Reflux HPI: 24-year-old male presenting with a burning discomfort in the upper abdomen and chest over the last 3 days worse with eating or drinking. Patient states sometimes the burning sensation get so bad he becomes mildly short of breath. Has not had a fever or cough recently. States he did have those symptoms about a month ago and did have a COVID test that was negative. He has not had a fever. He denies abdominal pain. States that certain foods do seem to make the burning discomfort worse. Did not take any medications for his symptoms. Patient states that his symptoms sound very much like what his mother has who is being treated with Nexium for reflux. Patient currently has no shortness of breath. ROS: See HPI - all other systems were reviewed and are otherwise negative Constitutional: no fever Eyes: no drainage, no blurred vision ENT: no runny nose, no sore throat Cardiovascular: no chest pain Resp: no SOB, no cough GI: no vomiting, no diarrhea, no abdominal pain, positive epigastric burning : no dysuria Integumentary: no rash Allergy: no hives Musculoskeletal: no extremity pain or swelling Neurological: no numbness/tingling, no weakness MEDICATIONS: I agree with the patient medications as charted by the RN. ALLERGIES: I agree with the allergies as charted by the RN. PAST MEDICAL HISTORY/PAST SURGICAL HISTORY: Reviewed and agree as charted by RN. SOCIAL HISTORY: Reviewed and agree as charted by RN. FAMILY HISTORY: No significant familial comorbid conditions directly related to patient complaint EXAM: Reviewed vital signs as charted by RN. CONSTITUTIONAL: Alert and oriented and responds appropriately to questions. Well-appearing; well-nourished HEAD: Normocephalic; atraumatic EYES: PERRL; Conjunctivae clear, sclerae non-icteric ENT: normal nose; no rhinorrhea; moist mucous membranes; pharynx without lesions noted, no uvula edema or deviation, no tonsillar hypertrophy, phonation normal NECK: Supple without meningismus; non-tender; no cervical lymphadenopathy, no masses CARD: RRR; no murmurs, no clicks, no rubs, no gallops; symmetric distal pulses RESP: Normal chest excursion without splinting or tachypnea; breath sounds clear and equal bilaterally; no wheezes, no rhonchi, no rales, pulse oximetry 99% on room air not hypoxic ABD/GI: Normal bowel sounds; non-distended; soft, non-tender, no rebound, no guarding; no palpable organomegaly or masses. BACK: The back appears normal and is non-tender to palpation, there is no CVA tenderness EXT: Normal ROM in all joints; non-tender to palpation; no cyanosis, no effus ions, no edema SKIN: Normal color for age and race; warm; dry; good turgor; no acute lesions noted NEURO: Moves all extremities equally; Motor and sensory function intact PSYCH: The patient's mood and manner are appropriate. Grooming and personal hygiene are appropriate. MDM: 24-year-old male presenting with a burning sensation in the epigastric region worse with eating or drinking certain foods. Has no actual shortness of breath, the shortness of breath comes from the discomfort of the burning sensation. Patient is low risk for coronary artery disease. He likely has reflux disorder. He has absolutely no abdominal pain on palpation of the abdomen at this time. EKG does not show ectopy. Normal sinus rhythm. Will obtain a chest x-ray given the shortness of breath complaint although I am not suspicious for COVID at this time. Patient will be given a GI cocktail if chest x-ray does not show abnormalities will be discharged on Protonix with GI referral TRAVEL OUTSIDE OF THE [place] IN LAST 30 DAYS: No - Related Data Allergies/Adverse Reactions: Penicillins Allergy (Unknown, Verified 08/23/19 14:34) Past Medical History - Social History Smoking Status: Unknown if Ever Smoked Family History: CAD Patient has suicidal ideation: No Patient has homicidal ideation: No Psychiatric Medical History: Reports: Hx Anxiety - Immunizations Immunizations up to date: Yes Hx Diphtheria, Pertussis, Tetanus Vaccination: Yes Physical Exam - Vital signs Vitals: Temp Pulse Resp BP Pulse Ox 98.6 F 101 H 20 128/82 H 100 08/23/19 14:30 08/23/19 14:30 08/23/19 14:30 08/23/19 14:30 08/23/19 14:30 Course - Re-evaluation Re-evalutation: 08/23/19 15:13 Chest x-ray on my review does not show evidence of pneumothorax or infiltrate. This is likely reflux. Will discharge with prescription for Protonix - Vital Signs Vital signs: Temp Pulse Resp BP Pulse Ox 98.6 F 101 H 20 128/82 H 100 08/23/19 14:30 08/23/19 14:30 08/23/19 14:30 08/23/19 14:30 08/23/19 14:30 Discharge - Discharge Clinical Impression: Reflux gastritis Condition: Stable Disposition: HOME, SELF-CARE Instructions: Reflux Disease (GERD) ([facility]) Additional Instructions: Avoid greasy or spicy foods. Avoid eating within 1 to 2 hours of going to bed. Avoid citrus fruits or drinks. Avoid smoking. Avoid alcohol. Avoid carbonated drinks. Avoid peppermint and chocolate. Take the medication as prescribed. Follow-up closely with a primary care provider and with gastroenterology for further evaluation and treatment call for appointment Prescriptions: Pantoprazole Sodium [Protonix [address] Tablet] 20 mg PO DAILY #30 tablet. Referrals: MARYSOL THOMSON MD [ACTIVE STAFF] - Follow up as needed
--- NOTE | 2019-08-23 15:12 | RADIOLOGY REPORT (SQ) ---
EXAM DESCRIPTION: CHEST SINGLE VIEW IMAGES COMPLETED DATE/TIME: 08/23/2019 3:03 pm REASON FOR STUDY: cough COMPARISON: 07/27/2019 EXAM PARAMETERS: NUMBER OF VIEWS: One view. TECHNIQUE: Single frontal radiographic view of the chest acquired. RADIATION DOSE: NA LIMITATIONS: None. FINDINGS: LUNGS AND PLEURA: No opacities, masses or pneumothorax. No pleural effusion. MEDIASTINUM AND HILAR STRUCTURES: No masses. Contour normal. HEART AND VASCULAR STRUCTURES: Heart normal in size. Normal vasculature. BONES: No acute findings. HARDWARE: None in the chest. OTHER: No other significant finding. IMPRESSION: NO ACUTE RADIOGRAPHIC FINDING IN THE CHEST. TECHNICAL DOCUMENTATION: JOB ID: [id number] 2010 [employer]- All Rights Reserved Reading location - IP/workstation name: [email or web address]
[2019-08-23 15:43] VITALS: BP 113/75
--- NOTE | 2019-08-23 22:49 | EKG REPORT ---
SEVERITY:- NORMAL ECG - SINUS RHYTHM : Confirmed by: Iram Flaherty 23-Aug-2019 22:48:22
== END 2019-08-23 15:44 | disposition home or self-care (01) ==
LOC: ER 14:23
DX: K21.9 Gastro-esophageal reflux disease without esophagitis (principal); K29.60 Other gastritis without bleeding; Z88.0 Allergy status to penicillin; Z83.79 Family history of other diseases of the digestive system
CPT/HCPCS: 93005; 99284; 71045; 93010; J3490

== ENCOUNTER 2019-09-16 16:18 | Emergency (ER) | payer OTHER ==
--- NOTE | 2019-09-16 16:43 | ER Document Report ---
ED Medical Screen (RME) - General Chief Complaint: Palpitations Stated Complaint: PALPITATIONS Time Seen by Provider: 09/16/19 16:39 Mode of Arrival: Ambulatory Information source: Patient Notes: HPI; 24-year-old male presents to the emergency room with palpitations that started earlier today. Patient denies any chest pain, shortness of breath, or difficulty breathing. States this has happened to him in the past but has never been seen or evaluated for it. PE: Alert and oriented x3, no acute distress noted. Lungs clear to auscultation without rales rhonchi or wheezes, heart regular rate rhythm without murmurs rubs or gallops. I have greeted and performed a rapid initial assessment of this patient. A comprehensive ED assessment and evaluation of the patient, analysis of test res ults and completion of medical decision making process will be conducted by an additional ED providers. TRAVEL OUTSIDE OF THE [place] IN LAST 30 DAYS: No - Related Data Allergies/Adverse Reactions: Penicillins Allergy (Unknown, Verified 09/16/19 16:35) Past Medical History Psychiatric Medical History: Reports: Hx Anxiety - Immunizations Immunizations up to date: Yes Hx Diphtheria, Pertussis, Tetanus Vaccination: Yes Physical Exam - Vital signs Vitals: Temp Pulse Resp BP Pulse Ox 98.4 F 78 14 132/73 H 100 09/16/19 16:28 09/16/19 16:28 09/16/19 16:28 09/16/19 16:28 09/16/19 16:28 Course - Vital Signs Vital signs: Temp Pulse Resp BP Pulse Ox 98.4 F 78 14 132/73 H 100 09/16/19 16:28 09/16/19 16:28 09/16/19 16:28 09/16/19 16:28 09/16/19 16:28
[2019-09-16 17:05] LABS: ABSOLUTE EOSINOPHILS # (AUTO) 0.1 10^3/uL (0.0-0.6); ABSOLUTE LYMPHOCYTES (AUTO) 1.4 10^3/uL (0.5-4.7); ABSOLUTE MONOCYTES (AUTO) 0.4 10^3/uL (0.1-1.4); ABSOLUTE NEUT (AUTO) 5.7 10^3/uL (1.7-8.2); BASOPHILS % (AUTO) 0.3 % (0-2); EOSINOPHILS % (AUTO) 1.3 % (0-6); HEMATOCRIT 44.8 % (37.9-51.0); HEMOGLOBIN 15.9 g/dL (13.5-17.0); LYMPHOCYTES % (AUTO) 18.3 % (13-45); MEAN CORPUSCULAR HEMOGLOBIN 32.1 pg (27.0-33.4); MEAN CORPUSCULAR HGB CONC 35.5 g/dL (32.0-36.0); MEAN CORPUSCULAR VOLUME 90 fl (80-97); MONOCYTES % (AUTO) 5.7 % (3-13); PLATELET COUNT 191 10^3/uL (150-450); RED BLOOD COUNT 4.97 10^6/uL (4.35-5.55); RED CELL DISTRIBUTION WIDTH 12.8 % (11.5-14.0); SEGMENTED NEUTROPHILS % (AUTO) 74.4 % (42-78); TOTAL CELLS COUNTED % (AUTO) 100 %; WHITE BLOOD COUNT 7.7 10^3/uL (4.0-10.5)
--- NOTE | 2019-09-16 17:21 | RADIOLOGY REPORT (SQ) ---
EXAM DESCRIPTION: CHEST 2 VIEWS IMAGES COMPLETED DATE/TIME: 09/16/2019 5:10 pm REASON FOR STUDY: palpitations COMPARISON: 08/23/2019 EXAM PARAMETERS: NUMBER OF VIEWS: two views TECHNIQUE: Digital Frontal and Lateral radiographic views of the chest acquired. RADIATION DOSE: NA LIMITATIONS: none FINDINGS: LUNGS AND PLEURA: No opacities, masses or pneumothorax. No pleural effusion. MEDIASTINUM AND HILAR STRUCTURES: No masses or contour abnormalities. HEART AND VASCULAR STRUCTURES: Heart normal size. No evidence for failure. BONES: No acute findings. HARDWARE: None in the chest. OTHER: No other significant finding. IMPRESSION: 1. No significant interval changes since the prior examination dated 08/23/2019. No acu te findings. TECHNICAL DOCUMENTATION: JOB ID: [id number] 2010 [employer]- All Rights Reserved Reading location - IP/workstation name: [email or web address]
[2019-09-16 17:25] LABS: ALKALINE PHOSPHATASE 66 U/L (38-126); ANION GAP 8 (5-19); ASPARTATE AMINO TRANSFERASE 24 U/L (17-59); BILIRUBIN,TOTAL 0.6 mg/dL (0.2-1.3); BLOOD UREA NITROGEN 11 mg/dL (7-20); CALCIUM 9.9 mg/dL (8.4-10.2); CARBON DIOXIDE 28 mmol/L (22-30); CHLORIDE 102 mmol/L (98-107); CREATINE KINASE 68 U/L (55-170); GLUCOSE 100 mg/dL (75-110); POTASSIUM 4.4 mmol/L (3.6-5.0); TOTAL PROTEIN 7.8 g/dL (6.3-8.2)
[2019-09-16 17:27] LABS: AMORPHOUS SEDIMENT,URINE 1+ /HPF; APPEARANCE,URINE TURBID; BILIRUBIN,URINE NEGATIVE (NEGATIVE); COLOR,URINE YELLOW; GLUCOSE, URINE NEGATIVE (NEGATIVE); KETONES,URINE NEGATIVE (NEGATIVE); LEUKOCYTE ESTERASE,URINE NEGATIVE (NEGATIVE); NITRITE,URINE NEGATIVE (NEGATIVE); PROTEIN,URINE NEGATIVE (NEGATIVE); URINE SPECIFIC GRAVITY 1.019; UROBILINOGEN,URINE NEGATIVE mg/dL (<2.0)
[2019-09-16 17:36] LABS: CREATINE KINASE MB 0.36 ng/mL (<4.55)
[2019-09-16 17:37] LABS: URINE AMPHETAMINES SCREEN NEGATIVE; URINE BARBITURATES SCREEN NEGATIVE; URINE BENZODIAZEPINES SCREEN NEGATIVE; URINE COCAINE SCREEN NEGATIVE; URINE METHADONE SCREEN NEGATIVE; URINE PHENCYCLIDINE SCREEN NEGATIVE
[2019-09-16 17:38] LABS: TROPONIN I < 0.012 ng/mL; URINE MARIJUANA (THC) SCREEN UNCONFIRMED POSITIVE
--- NOTE | 2019-09-16 18:10 | ER Document Report ---
ED General - General Chief Complaint: Palpitations Stated Complaint: PALPITATIONS Time Seen by Provider: 09/16/19 16:39 Primary Care Provider: [facility] [Provider Group] - Follow up as needed [facility] [Provider Group] - Follow up as needed HELENA BARNES MD [ACTIVE PROVISIONAL STAFF] - Follow up as needed AFTAB JONES MD [EMERITUS] - Follow up as needed Mode of Arrival: Ambulatory Information source: Patient Notes: 24-year-old male presented to ED for complaint of palpitations that started earlier today. He states he has had 2 other episodes one when he was 20 years old when he was running 1 when he was 22 years old when he was smoking a cigarette and then 1 today. He states that he has never been seen or evaluated for these palpitations. He denies any shortness of breath any chest pain any distress at all. His lungs are clear to auscultation. He is alert oriented respirations regular nonlabored heart rate is regular rate and rhythm with no murmurs rubs or gallops. He was seen in the triage area and labs x-ray and EKG were ordered. He has no abnormalities noted at this time. I have discussed with him the results of his test and given him a written report of these test to take to his primary care and a metal riveter. I have given the name and number of several MDs to follow-up with. TRAVEL OUTSIDE OF THE [place] IN LAST 30 DAYS: No - HPI Onset: This afternoon Onset/Duration: Intermittent Quality of pain: No pain Severity: None Pain Level: Denies Associated symptoms: Other - Capitation with no pain no nausea no vomiting no shortness of breath no other symptoms Exacerbated by: Denies Relieved by: Denies Similar symptoms previously: Yes Recently seen / treated by doctor: No - Related Data Allergies/Adverse Reactions: Penicillins Allergy (Unknown, Verified 09/16/19 16:35) Home Medications: finasteride topical Past Medical History - General Information source: Patient - Social History Smoking Status: Former Smoker Chew tobacco use (# tins/day): No Frequency of alcohol use: None Drug Abuse: Marijuana Family History: CAD Patient has homicidal ideation: No - Past Medical History Cardiac Medical History: Reports: None Pulmonary Medical History: Reports: None EENT Medical History: Reports: None Neurological Medical History: Reports: None Endocrine Medical History: Reports: None Renal/ Medical History: Reports: None Malignancy Medical History: Reports None GI Medical History: Reports: None Musculoskeletal Medical History: Reports None Skin Medical History: Reports None Psychiatric Medical History: Reports: Hx Anxiety Traumatic Medical History: Reports: None Infectious Medical History: Reports: None Surgical Hx: Negative Past Surgical History: Reports: None - Immunizations Immunizations up to date: Yes Hx Diphtheria, Pertussis, Tetanus Vaccination: Yes Review of Systems - Review of Systems Constitutional: No symptoms reported EENT: No symptoms reported Cardiovascular: Palpitations Respiratory: No symptoms reported Gastrointestinal: No symptoms reported Genitourinary: No symptoms reported Male Genitourinary: No symptoms reported Musculoskeletal: No symptoms reported Skin: No symptoms reported Hematologic/Lymphatic: No symptoms reported Neurological/Psychological: No symptoms reported -: Yes All other systems reviewed and negative Physical Exam - Vital signs Vitals: Temp Pulse Resp BP Pulse Ox 98.4 F 78 14 132/73 H 100 09/16/19 16:28 09/16/19 16:28 09/16/19 16:28 09/16/19 16:28 09/16/19 16:28 Interpretation: Normal - General General appearance: Appears well, Alert - HEENT Head: Normocephalic, Atraumatic Eyes: Normal Pupils: PERRL - Respiratory Respiratory status: No respiratory distress Chest status: Nontender Breath sounds: Normal Chest palpation: Normal - Cardiovascular Rhythm: Regular Heart sounds: Normal auscultation Murmur: No Friction rub: No Carlitos's crunch: No Gallop: None auscultated Normal capillary refill: Yes - Abdominal Inspection: Normal Distension: No distension Bowel sounds: Normal Tenderness: Nontender Organomegaly: No organomegaly - Back Back: Normal, Nontender - Extremities General upper extremity: Normal inspection, Nontender, Normal color, Normal ROM, Normal temperature General lower extremity: Normal inspection, Nontender, Normal color, Normal ROM, Normal temperature, Normal weight bearing. No: Arely's sign - Neurological Neuro grossly intact: Yes Cognition: Normal Orientation: AAOx4 [place] Coma Scale Eye Opening: Spontaneous [place] Coma Scale Verbal: Oriented [place] Coma Scale Motor: Obeys Commands [place] Coma Scale Total: 15 Speech: Normal Motor strength normal: LUE, RUE, LLE, RLE Sensory: Normal - Psychological Associated symptoms: Normal affect, Normal mood - Skin Skin Temperature: Warm Skin Moisture: Dry Skin Color: Normal Course - Re-evaluation Re-evalutation: 09/17/19 00:04 Patient had no chest pain throughout his stay. He states he does have palpitations felt like his heart was racing. He states that this happened 3 times in the past. He states he is never followed up with these. He was instructed to please follow-up with a metal riveter this time. He was given the name of several primary care's and metal riveter follow-up. Patient verbalized understanding and agreement treatment plan patient was discharged home. - Vital Signs Vital signs: Temp Pulse Resp BP Pulse Ox 97.3 F 78 14 129/80 H 99 09/16/19 19:26 09/16/19 16:28 09/16/19 19:12 09/16/19 19:12 09/16/19 19:12 - Laboratory Result Diagrams: 09/16/19 16:52 09/16/19 16:52 - Diagnostic Test Radiology reviewed: Image reviewed, Reports reviewed - EKG Interpretation by Me EKG shows normal: Sinus rhythm Rate: Normal Rhythm: NSR When compared to previous EKG there are: No significant change Discharge - Discharge Clinical Impression: Intermittent palpitations Condition: Stable Disposition: HOME, SELF-CARE Additional Instructions: Palpitations (Irregular/Rapid Heartrate) Irregular or rapid heartbeat is called "palpitation." To diagnose the cause of palpitation, we have to "catch it in the act" with an EKG. Sinus Tachycardia: This is a rapid (but NORMAL) rhythm that can be due to fever, pain, anxiety, lack of sleep, over-exertion, or drugs. Cold medications, caffeine, and diet pills are particularly likely to cause tachycardia. Usually, all that's required is rest, reassurance, and avoiding caffeine, alcohol, nicotine, and unnecessary medicines. Paroxysmal Atrial Tachycardia (PAT): This abnormally rapid heartbeat is caused by a "short circuit" in the electrical system of the heart. It is not dangerous, unless other heart disease is present. These attacks of PAT may occur occasionally for years. Medication is available for treatment. Paroxysmal Atrial Fibrillation or Atrial Flutter: This is irregular electrical activity in the upper heart chamber. These abnormal rhythms often occur with valve disease or in hearts damaged by hardening of the arteries. These rhythms usually require further testing, for example a cardiac echo. Premature Beats: Extra beats occur more commonly after caffeine, nicotine, alcohol, cold pills, diet pills. Emotional stress or fatigue also provoke them. Extra beats are only dangerous when heart disease is present. They usually need no treatment. If they're frequent, or if evidence of heart disease develops, medication can be given to suppress them. If we were unable to "catch" the palpitations on EKG, you should try to get an EKG immediately if the symptoms begin again. Contact the physician at once if you develop persistent lightheadedness, shortness of breath, chest pain, or swelling of the ankles. NORMAL EXAM AND WORKUP: At this time, your examination and workup show no significant abnormality. No significant abnormal physical findings were noted. All laboratory, EKG, and imaging (x-ray, CT scans, ultrasound) studies that were ordered show no significant abnormality. Although your examination and all studies that were ordered showed no significant abnormal finding, there are no examinations and no studies that are 100% accurate. There is always the possibility that some abnormality could exist and not be detected with physical examination or within the limits and capabilities of laboratory and other studies. You should return or follow up as you were instructed on your visit today for further evaluation if your symptoms do not resolve. ASPIRIN: Aspirin has been shown to have a beneficial effect on blood circulation by reducing the clotting effect of platelets in the blood. These beneficial effects can be achieved by taking just a single baby (81 mg) aspirin a day. It is recommended that any person over the age of forty take a single baby aspirin every day for heart and brain circulation, unless you are allergic to aspirin or have some significant bleeding disorder. It is strongly recommended that people who have proven cardiac or blood circulation disturbances should take a baby aspirin every day. NITRATES: Nitroglycerin and related longer-acting nitrate medications are used to prevent or treat attacks of angina. These medicines dilate blood vessels, decreasing the work of the heart, and improving its supply of oxygen. Many different forms are available, including sublingual tablets (used under the tongue), sprays, skin patches, and long-acting pills. If the particular form of medication you have been given is not working well for you, contact your doctor. Long-acting forms: Take exactly as prescribed. Sudden stopping of medication can provoke increased attacks. Sublingual tabs or spray: A headache will usually occur with use. Sit or lie while waiting for the pain to go away. If angina doesn't respond to three doses (five minutes apart), call for emergency assistance. FOLLOW-UP CARE: If you have been referred to a physician for follow-up care, call the physicians office for an appointment as you were instructed or within the next two days. If you experience worsening or a significant change in your symptoms, notify the physician immediately or return to the Emergency Department at any time for re-evaluation. Forms: Elevated Blood Pressure, Smoking Cessation Education Referrals: [facility] [Provider Group] - Follow up as needed [facility] [Provider Group] - Follow up as needed HELENA BARNES MD [ACTIVE PROVISIONAL STAFF] - Follow up as needed AFTAB JONES MD [EMERITUS] - Follow up as needed
[2019-09-16 19:25] VITALS: BP 129/80
--- NOTE | 2019-09-16 23:01 | EKG REPORT ---
SEVERITY:- NORMAL ECG - SINUS RHYTHM : Confirmed by: Iram Flaherty 16-Sep-2019 23:00:48
== END 2019-09-16 19:25 | disposition home or self-care (01) ==
LOC: ER 16:18
DX: R00.2 Palpitations (principal); F12.10 Cannabis abuse, uncomplicated; Z87.891 Personal history of nicotine dependence; Z79.899 Other long term (current) drug therapy; Z88.0 Allergy status to penicillin; Z82.49 Family history of ischemic heart disease and other diseases of the circulatory system
CPT/HCPCS: 36415; 71046; 80053; 80307; 81001; 82550; 82553; 84484; 85025; 93005; 93010; 99285

== ENCOUNTER 2019-09-23 22:22 | Emergency (ER) | payer OTHER ==
--- NOTE | 2019-09-23 22:58 | ER Document Report ---
ED Medical Screen (RME) - General Chief Complaint: Abdominal Pain Stated Complaint: ABDOMINAL PAIN,HEART RACING Time Seen by Provider: 09/23/19 22:51 Notes: HPI: 24-year-old male presenting to the emergency department complaining of approximately 24 hours of upper abdominal discomfort slight nausea no vomiting. No fever. Patient states that he also feels like his heart is beating irregularly. States this is happened intermittently over the last several years most recently he felt like it was beating very quickly a week ago. Patient has not had this evaluated by a PCP. PHYSICAL EXAMINATION: Patient appears mildly uncomfortable and very anxious. Mild tachycardia on auscultation. Mild discomfort on palpation of the upper abdomen I have greeted and performed a rapid initial assessment of this patient. A comprehensive ED assessment and evaluation of the patient, analysis of test results and completion of medical decision making process will be conducted by an additional ED providers. TRAVEL OUTSIDE OF THE [place] IN LAST 30 DAYS: No - Related Data Allergies/Adverse Reactions: Penicillins Allergy (Unknown, Verified 09/16/19 16:35) Past Medical History Psychiatric Medical History: Reports: Hx Anxiety - Immunizations Immunizations up to date: Yes Hx Diphtheria, Pertussis, Tetanus Vaccination: Yes Physical Exam - Vital signs Vitals: Temp Pulse Resp BP Pulse Ox 98.0 F 111 H 20 143/82 H 100 09/23/19 22:36 09/23/19 22:36 09/23/19 22:36 09/23/19 22:36 09/23/19 22:36 Course - Vital Signs Vital signs: Temp Pulse Resp BP Pulse Ox 98.0 F 111 H 20 143/82 H 100 09/23/19 22:36 09/23/19 22:36 09/23/19 22:36 09/23/19 22:36 09/23/19 22:36
--- NOTE | 2019-09-23 23:25 | ER Document Report ---
ED General - General Chief Complaint: Abdominal Pain Stated Complaint: ABDOMINAL PAIN,HEART RACING Time Seen by Provider: 09/23/19 22:51 Primary Care Provider: [facility] [Primary Care Provider] - Follow up as needed Mode of Arrival: Ambulatory Information source: Patient Notes: DEMETRIA Garduno notes pt reports palpitations and "irregular heart beats" since and abdominal pain that started today. Pt stated that the epigastric pain was so severe that he experienced "cold sweats". Pt appears anxious during assessment. Pt denies nausea, vomiting or fever. Honey REYES notes HPI: 24-year-old male presenting to the emergency department complaining of approximately 24 hours of upper abdominal discomfort slight nausea no vomiting. No fever. Patient states that he also feels like his heart is beating irregularly. States this is happened intermittently over the last several years most recently he felt like it was beating very quickly a week ago. Patient has not had this evaluated by a PCP. my notes 24-year-old male arrives with chief complaint of having 3 to 4 weeks of having caffeine withdrawal in early July. He says been drinking caffeine since he was a child and stopped doing this because of heart palpitations and anxiety. He was complaining of heart arrhythmias as well and pointing to his right upper quadrant for his chest pain. His mother has thyroid problems and heart problems and is around 66 years old. His father is heavyset and has some hypertension. Patient "has been smoking cigarettes since he was a youth and stopped around 2-1/2 years ago after graduating to [employer] and then to [employer]." Patient reports she has been having visual blurring and cephalgia as well as eye floaters. He denies any back pain but is quite slender. His blood pressure is 120/80 and his heart rate was around 95. He does admit to smoking marijuana but denies any PCP cocaine speed or methamphetamines. TRAVEL OUTSIDE OF THE [place] IN LAST 30 DAYS: No - HPI Onset: Just prior to arrival Onset/Duration: Persistent, Worse Quality of pain: Achy Severity: None Pain Level: Denies Associated symptoms: None Exacerbated by: Movement, Walking Relieved by: Denies Similar symptoms previously: Yes Recently seen / treated by doctor: No - Related Data Allergies/Adverse Reactions: Penicillins Allergy (Unknown, Verified 09/16/19 16:35) Home Medications: klonopin as needed Past Medical History - General Information source: Patient - Social History Smoking Status: Former Smoker Cigarette use (# per day): No Chew tobacco use (# tins/day): No Smoking Education Provided: No Frequency of alcohol use: None Drug Abuse: Marijuana Lives with: Family Family History: Reviewed & Not Pertinent, CAD Patient has suicidal ideation: No Patient has homicidal ideation: No Psychiatric Medical History: Reports: Hx Anxiety - Immunizations Immunizations up to date: Yes Hx Diphtheria, Pertussis, Tetanus Vaccination: Yes Review of Systems - Review of Systems Constitutional: No symptoms reported EENT: No symptoms reported Cardiovascular: See HPI, Chest pain Respiratory: No symptoms reported Gastrointestinal: See HPI, Abdominal pain Genitourinary: No symptoms reported Male Genitourinary: No symptoms reported Musculoskeletal: No symptoms reported Skin: No symptoms reported Hematologic/Lymphatic: No symptoms reported Neurological/Psychological: See HPI, Sensory change, Headaches Physical Exam - Vital signs Vitals: Temp Pulse Resp BP Pulse Ox 98.0 F 111 H 20 143/82 H 100 09/23/19 22:36 09/23/19 22:36 09/23/19 22:36 09/23/19 22:36 09/23/19 22:36 Interpretation: Tachycardic - General General appearance: Alert - HEENT Head: Normocephalic, Atraumatic Eyes: Normal Pupils: PERRL Mouth/Lips: Normal Mucous membranes: Normal Pharynx: Normal Neck: Normal - Respiratory Respiratory status: No respiratory distress Chest status: Nontender Breath sounds: Normal Chest palpation: Normal - Cardiovascular Rhythm: Tachycardia Heart sounds: Normal auscultation Murmur: No - Abdominal Inspection: Normal Distension: No distension Bowel sounds: Normal Tenderness: Nontender Organomegaly: No organomegaly - Rectal Hemorrhoids: Other - deferred - Genitourinary Tenderness: Other - deferred - Back Back: Normal - Extremities General upper extremity: Normal inspection General lower extremity: Normal inspection - Neurological Neuro grossly intact: Yes Cognition: Normal Orientation: AAOx4 Brian Coma Scale Eye Opening: Spontaneous Brian Coma Scale Verbal: Oriented Brian Coma Scale Motor: Obeys Commands [place] Coma Scale Total: 15 Speech: Normal Motor strength normal: LUE, RUE, LLE, RLE Sensory: Normal - Psychological Associated symptoms: Normal affect - Skin Skin Temperature: Warm Skin Moisture: Dry Course - Vital Signs Vital signs: Temp Pulse Resp BP Pulse Ox 98.2 F 74 18 122/73 96 09/24/19 02:01 09/24/19 02:00 09/24/19 02:01 09/24/19 02:01 09/24/19 02:01 - Laboratory Result Diagrams: 09/23/19 23:00 09/23/19 23:00 Laboratory results interpreted by me: 09/23/19 09/23/19 09/23/19 23:00 23:00 23:00 MCHC 36.3 H Glucose 140 H Urine Ascorbic Acid 20 H Critical Care Note - Critical Care Note Total time excluding time spent on procedures (mins): 90 Comments: I advised patient of his labs and ultrasound and scan which were essentially negative. Discharge - Discharge Clinical Impression: Tachycardia, Anxiety about health Condition: Good Disposition: HOME, SELF-CARE Additional Instructions: Follow-up with Dr. Otoole cardiology and with personal doctor this week if possible take medicines propranolol daily and also at nighttime if needed for tachycardia. May want to discontinue use of marijuana as well as any caffeinated drinks or any chocolate to avoid theobromine.. May want to use relaxation techniques like yoga or deep breathing exercises and take beta- pérez propranolol for tachycardia as well. Prescriptions: Propranolol HCl [Inderal 20 mg Tablet] 20 mg PO Q12 #30 tab Forms: Return to Work Referrals: [facility] [Primary Care Provider] - Follow up as needed
[2019-09-23 23:27] LABS: ABSOLUTE EOSINOPHILS # (AUTO) 0.1 10^3/uL (0.0-0.6); ABSOLUTE LYMPHOCYTES (AUTO) 1.8 10^3/uL (0.5-4.7); ABSOLUTE MONOCYTES (AUTO) 0.5 10^3/uL (0.1-1.4); BASOPHILS % (AUTO) 0.2 % (0-2); HEMATOCRIT 43.6 % (37.9-51.0); HEMOGLOBIN 15.8 g/dL (13.5-17.0); LYMPHOCYTES % (AUTO) 28.5 % (13-45); MEAN CORPUSCULAR HEMOGLOBIN 32.9 pg (27.0-33.4); MEAN CORPUSCULAR HGB CONC 36.3 g/dL (32.0-36.0); MEAN CORPUSCULAR VOLUME 91 fl (80-97); MONOCYTES % (AUTO) 7.3 % (3-13); PLATELET COUNT 186 10^3/uL (150-450); RED CELL DISTRIBUTION WIDTH 12.7 % (11.5-14.0); TOTAL CELLS COUNTED % (AUTO) 100 %; WHITE BLOOD COUNT 6.5 10^3/uL (4.0-10.5)
[2019-09-23 23:44] LABS: AMORPHOUS SEDIMENT,URINE TRACE /HPF; APPEARANCE,URINE CLOUDY; BILIRUBIN,URINE NEGATIVE (NEGATIVE); COLOR,URINE YELLOW; GLUCOSE, URINE NEGATIVE (NEGATIVE); KETONES,URINE NEGATIVE (NEGATIVE); LEUKOCYTE ESTERASE,URINE NEGATIVE (NEGATIVE); NITRITE,URINE NEGATIVE (NEGATIVE); PROTEIN,URINE NEGATIVE (NEGATIVE); URINE SPECIFIC GRAVITY 1.019; UROBILINOGEN,URINE NEGATIVE mg/dL (<2.0)
[2019-09-23 23:47] LABS: ALKALINE PHOSPHATASE 67 U/L (38-126); ANION GAP 9 (5-19); ASPARTATE AMINO TRANSFERASE 21 U/L (17-59); BILIRUBIN,TOTAL 0.6 mg/dL (0.2-1.3); BLOOD UREA NITROGEN 11 mg/dL (7-20); CALCIUM 9.8 mg/dL (8.4-10.2); CARBON DIOXIDE 27 mmol/L (22-30); CHLORIDE 104 mmol/L (98-107); GLUCOSE 140 mg/dL (75-110); POTASSIUM 4.3 mmol/L (3.6-5.0); TOTAL PROTEIN 7.6 g/dL (6.3-8.2)
--- NOTE | 2019-09-23 23:56 | RADIOLOGY REPORT (SQ) ---
EXAM DESCRIPTION: XR CHEST 2 VIEWS COMPLETED DATE/TME: 09/23/2019 23:15 CLINICAL HISTORY: 24 years Male, chest pain COMPARISON: 09/16/19 NUMBER OF VIEWS/TECHNIQUE: 2, Frontal, Lateral FINDINGS: Adequate lung volume, clear parenchyma, normal cardiac silhouette, and intact bony thorax. IMPRESSION: No acute cardiopulmonary findings.
--- NOTE | 2019-09-24 01:12 | RADIOLOGY REPORT (SQ) ---
EXAM DESCRIPTION: US ABDOMEN LIMITED COMPLETED DATE/TME: 09/23/2019 22:56 CLINICAL HISTORY: 24 years Male, upper abd pain Comparison: None. LIMITATIONS: None. FINDINGS: Gallbladder, negative sonographic Chahal's test, liver, a 0.2-cm diameter common bile duct, no intrahepatic ductal dilation, hepatopetal patent flow of the portal vein, 11-cm right kidney, pancreas, visualized vasculature/abdominal aorta, and no significant ascites appear otherwise unremarkable. IMPRESSION: Normal RUQ-Abdominal Sonogram.
--- NOTE | 2019-09-24 01:26 | RADIOLOGY REPORT (SQ) ---
EXAM DESCRIPTION: CT HEAD WITHOUT IV CONTRAST COMPLETED DATE/TME: 09/24/2019 00:26 CLINICAL HISTORY: 24 years Male, headache and visual changes COMPARISON: None. TECHNIQUE: No contrast. Coronal and sagittal reformat. This exam was performed according to our departmental dose-optimization program, which includes automated exposure control, adjustment of the mA and/or kV according to patient size and/or use of iterative reconstruction technique. FINDINGS: No hemorrhage or infarct. No mass, mass effect, or midline shift. Brain and extra-axial structures appear intact. IMPRESSION: Normal CT of the head.
[2019-09-24] MEDS ORDERED: PROPRANOLOL HCL 10 MG TABLET PO ONE (01:41)
[2019-09-24 02:08] LABS: URINE AMPHETAMINES SCREEN NEGATIVE; URINE BARBITURATES SCREEN NEGATIVE; URINE BENZODIAZEPINES SCREEN NEGATIVE; URINE COCAINE SCREEN NEGATIVE; URINE METHADONE SCREEN NEGATIVE; URINE PHENCYCLIDINE SCREEN NEGATIVE
[2019-09-24 02:12] LABS: URINE MARIJUANA (THC) SCREEN UNCONFIRMED POSITIVE
[2019-09-24 02:29] VITALS: BP 122/73
--- NOTE | 2019-09-24 08:01 | EKG REPORT ---
SEVERITY:- BORDERLINE ECG - SINUS RHYTHM CONSIDER RIGHT VENTRICULAR HYPERTROPHY : Confirmed by: Marisela Rodriges MD 24-Sep-2019 08:01:21
== END 2019-09-24 02:00 | disposition home or self-care (01) ==
LOC: ER 22:22
DX: F41.9 Anxiety disorder, unspecified (principal); R00.0 Tachycardia, unspecified; R07.9 Chest pain, unspecified; R10.13 Epigastric pain; R11.0 Nausea; H53.8 Other visual disturbances; R51 Headache; F12.10 Cannabis abuse, uncomplicated; Z87.891 Personal history of nicotine dependence; Z88.0 Allergy status to penicillin; Z82.49 Family history of ischemic heart disease and other diseases of the circulatory system
CPT/HCPCS: 36415; 70450; 71046; 76705; 80053; 80307; 81001; 83690; 83735; 84443; 84484; 85025; 93005; 93010; 99291; 99292

== ENCOUNTER 2019-10-06 22:31 | Emergency (ER) | payer OTHER ==
--- NOTE | 2019-10-06 23:35 | EKG REPORT ---
SEVERITY:- BORDERLINE ECG - SINUS RHYTHM PROBABLE LEFT ATRIAL ABNORMALITY CONSIDER RIGHT VENTRICULAR HYPERTROPHY : Confirmed by: Irma Flaherty 06-Oct-2019 23:34:31
[2019-10-06] MEDS ORDERED: METOCLOPRAMIDE HCL ORAL SOLN 10 MG/10 ML UDCUP PO ONE (23:59)
[2019-10-06] MEDS ORDERED: LIDOCAINE 2% VISCOUS SOLN 15 ML UDCUP PO ONE (23:59)
[2019-10-06] MEDS ORDERED: MAG HYDROX/AL HYDROX/SIMETH SUSP 30 ML UDCUP PO ONE (23:59)
--- NOTE | 2019-10-07 00:01 | ER Document Report ---
ED Medical Screen (RME) - General Chief Complaint: Abdominal Pain Stated Complaint: CHEST TIGHTNESS/PAIN Time Seen by Provider: 10/06/19 23:55 Primary Care Provider: KEDAR CHAU [Primary Care Provider] - Follow up as needed Notes: HPI: 24-year-old male presenting to the emergency department complaining of upper abdominal pain and chest discomfort that began yesterday after eating [place] toast. States 1 to 2 hours after eating he began to have sharp discomfort in the lower chest upper abdomen. Did not have vomiting. Did report some shortness of breath with it. States that the symptoms seem to come and go today as well which concerned him about it being a heart issue. No history of heart problems. States mother had heart disease and thyroid problems. Took an aspirin today but did not take other medications for stomach issues. States that he is off of Protonix currently and that this feels very different than his reflux disease PHYSICAL EXAMINATION: Very mild tenderness in the epigastric region on palpation of the abdomen regular rate and rhythm. EKG normal sinus rhythm without significant ectopy, ventricular rate of 94 I have greeted and performed a rapid initial assessment of this patient. A comprehensive ED assessment and evaluation of the patient, analysis of test results and completion of medical decision making process will be conducted by an additional ED providers. TRAVEL OUTSIDE OF THE [place] IN LAST 30 DAYS: No - Related Data Allergies/Adverse Reactions: Penicillins Allergy (Unknown, Verified 10/06/19 23:53) Past Medical History - Social History Frequency of alcohol use: None Drug Abuse: Marijuana Psychiatric Medical History: Reports: Hx Anxiety - Immunizations Immunizations up to date: Yes Hx Diphtheria, Pertussis, Tetanus Vaccination: Yes Physical Exam - Vital signs Vitals: Temp Pulse Resp BP Pulse Ox 98.4 F 90 16 133/69 H 97 10/06/19 22:51 10/06/19 22:51 10/06/19 22:51 10/06/19 22:51 10/06/19 22:51 Course - Vital Signs Vital signs: Temp Pulse Resp BP Pulse Ox 98.4 F 90 16 133/69 H 97 10/06/19 23:53 10/06/19 22:51 10/06/19 22:51 10/06/19 22:51 10/06/19 22:51 Doctor's Discharge - Discharge Referrals: KEDAR CHAU [Primary Care Provider] - Follow up as needed
--- NOTE | 2019-10-07 00:30 | RADIOLOGY REPORT (SQ) ---
EXAM DESCRIPTION: XR CHEST 2 VIEWS COMPLETED DATE/TME: 10/06/2019 23:59 CLINICAL HISTORY: 24 years, Male, chest pain COMPARISON: 09/23/2019 NUMBER OF VIEWS: Two TECHNIQUE: Two views of the chest LIMITATIONS: None. FINDINGS: The lungs are clear. The heart is normal in size. There is no pneumothorax or pleural effusion. The bones are unremarkable. IMPRESSION: No acute cardiopulmonary abnormality copyright 2010 [employer]- All Rights Reserved
[2019-10-07 00:51] LABS: ABSOLUTE LYMPHOCYTES (AUTO) 1.9 10^3/uL (0.5-4.7); ABSOLUTE MONOCYTES (AUTO) 0.6 10^3/uL (0.1-1.4); BASOPHILS % (AUTO) 0.1 % (0-2); EOSINOPHILS % (AUTO) 0.3 % (0-6); HEMATOCRIT 46.4 % (37.9-51.0); HEMOGLOBIN 16.4 g/dL (13.5-17.0); LYMPHOCYTES % (AUTO) 17.9 % (13-45); MEAN CORPUSCULAR HEMOGLOBIN 31.8 pg (27.0-33.4); MEAN CORPUSCULAR HGB CONC 35.3 g/dL (32.0-36.0); MEAN CORPUSCULAR VOLUME 90 fl (80-97); MONOCYTES % (AUTO) 5.9 % (3-13); PLATELET COUNT 199 10^3/uL (150-450); RED BLOOD COUNT 5.15 10^6/uL (4.35-5.55); RED CELL DISTRIBUTION WIDTH 12.6 % (11.5-14.0); SEGMENTED NEUTROPHILS % (AUTO) 75.8 % (42-78); TOTAL CELLS COUNTED % (AUTO) 100 %; WHITE BLOOD COUNT 10.6 10^3/uL (4.0-10.5)
[2019-10-07 00:57] LABS: APPEARANCE,URINE TURBID; BILIRUBIN,URINE NEGATIVE (NEGATIVE); COLOR,URINE YELLOW; GLUCOSE, URINE NEGATIVE (NEGATIVE); KETONES,URINE 20 mg/dL (NEGATIVE); LEUKOCYTE ESTERASE,URINE NEGATIVE (NEGATIVE); NITRITE,URINE NEGATIVE (NEGATIVE); PROTEIN,URINE 30 mg/dL (NEGATIVE); URINE SPECIFIC GRAVITY 1.024
[2019-10-07 01:04] LABS: ALKALINE PHOSPHATASE 70 U/L (38-126); ANION GAP 11 (5-19); ASPARTATE AMINO TRANSFERASE 22 U/L (17-59); BILIRUBIN,TOTAL 0.8 mg/dL (0.2-1.3); BLOOD UREA NITROGEN 13 mg/dL (7-20); CALCIUM 9.9 mg/dL (8.4-10.2); CARBON DIOXIDE 25 mmol/L (22-30); CHLORIDE 104 mmol/L (98-107); GLUCOSE 92 mg/dL (75-110); POTASSIUM 4.1 mmol/L (3.6-5.0); TOTAL PROTEIN 7.7 g/dL (6.3-8.2)
--- NOTE | 2019-10-07 03:44 | ER Document Report ---
ED General - General Chief Complaint: Abdominal Pain Stated Complaint: CHEST TIGHTNESS/PAIN Time Seen by Provider: 10/06/19 23:55 Primary Care Provider: [facility] [Primary Care Provider] - Follow up as needed TRAVEL OUTSIDE OF THE [place] IN LAST 30 DAYS: No - HPI Notes: 24-year-old male history of marijuana use presents with 3 days retrosternal chest pain nonradiating that began after crouching playing computer games and eating Turk[place] toast without associated symptom or prior episodes aggravated by certain movements. Patient denies ever having symptoms before, exertional chest pain, pleuritic pain, lower extremity edema, recent travel/trauma/surgery, exogenous estrogen, cancer history, DVT/PE/hypercoagulability history in self or family, hemoptysis, cough, fever, abdominal pain, vomiting/diarrhea/constipation/bloody stool, trauma, family history - Related Data Allergies/Adverse Reactions: Penicillins Allergy (Unknown, Verified 10/06/19 23:53) Past Medical History - General Information source: Patient - Social History Smoking Status: Former Smoker Frequency of alcohol use: None Drug Abuse: Marijuana Family History: Reviewed & Not Pertinent, CAD Patient has homicidal ideation: No Psychiatric Medical History: Reports: Hx Anxiety - Immunizations Immunizations up to date: Yes Hx Diphtheria, Pertussis, Tetanus Vaccination: Yes Review of Systems - Review of Systems Notes: REVIEW OF SYSTEMS: CONSTITUTIONAL : Denies fever, chills, or sweats. EENT: Denies recent cold/sinus symptoms, denies throat pain CARDIOVASCULAR: + chest pain, -ABBEY RESPIRATORY: Denies cough, denies shortness of breath. GASTROINTESTINAL: Denies abdominal pain, nausea/vomiting. GENITOURINARY: Denies difficulty urinating, painful urination. MUSCULOSKELETAL: Denies neck pain, back pain. SKIN: Denies rash or skin lesions. HEMATOLOGIC : Denies easy bruising or bleeding. LYMPHATIC: Denies swollen, enlarged glands. NEUROLOGICAL: Denies headache, denies change in gait. PSYCHIATRIC: Denies stress or depression. Physical Exam - Vital signs Vitals: Temp Pulse Resp BP Pulse Ox 98.4 F 90 16 133/69 H 97 10/06/19 22:51 10/06/19 22:51 10/06/19 22:51 10/06/19 22:51 10/06/19 22:51 - Notes Notes: PHYSICAL EXAMINATION: GENERAL: Well-appearing, well-nourished and in no acute distress. HEAD: Atraumatic, normocephalic. EYES: Pupils equal round and appropriate constriction, sclera anicteric, conjunctiva are normal. ENT: nares patent, moist mucous membranes. NECK: Normal range of motion, supple without lymphadenopathy LUNGS: Breath sounds clear to auscultation bilaterally and equal. No wheezes rales or rhonchi. HEART: Regular rate and rhythm without murmurs ABDOMEN: Soft, nontender, no guarding, no masses, no CVAT EXTREMITIES: Normal range of motion, no pitting or edema, no calf tenderness. No cyanosis. NEUROLOGICAL: Awake, alert, conversing appropriately, moves all extremities spontaneously. PSYCH: Normal mood, normal affect. SKIN: Warm, Dry, normal turgor, no rashes or lesions noted. Course - Re-evaluation Re-evalutation: 10/07/19 03:42 24-year-old with chest pain without any risk factors for ACS, PERC negative, very well-appearing no exam findings that are abnormal, no predisposing familial history. EKG without signs of hokum/Brugada/WPW, Trop negative and sufficient time elapsed since onset of symptoms, PERC negative no indication for d-dimer, chest x-ray hyperinflated but no respiratory symptoms and normal respiratory exam. Advised patient on smoking cessation. Instructed him to follow-up with primary doctor if symptoms persist. Gave extensive return to ED precautions verbally which patient demonstrated understanding of. - Vital Signs Vital signs: Temp Pulse Resp BP Pulse Ox 98.0 F 66 14 112/79 98 10/07/19 03:48 10/07/19 03:48 10/07/19 03:48 10/07/19 03:48 10/07/19 03:48 - Laboratory Result Diagrams: 10/07/19 00:35 10/07/19 00:35 Laboratory results interpreted by me: 10/07/19 10/07/19 00:35 00:35 WBC 10.6 H Urine Protein 30 H Urine Ketones 20 H Urine Urobilinogen 2.0 H Urine Ascorbic Acid 40 H - EKG Interpretation by Me Additional EKG results interpreted by me: 10/06/19 23:00 Heart rate 94, regular sinus rhythm, no significant ST elevations or depressions, normal intervals, QTC 426 Discharge - Discharge Clinical Impression: Chest pain Qualifiers: Chest pain type: unspecified Qualified Code(s): R07.9 - Chest pain, unspecified Condition: Good Disposition: HOME, SELF-CARE Additional Instructions: Chest Pain of Unclear Cause The exact cause of your chest pain isn't clear. Fortunately, there is no evidence of a dangerous medical condition. Further testing may be required to find the source of the pain. Most often, we find that this pain is coming from the chest wall -- the muscl es or rib joints in the chest. But chest pain can come from the lung and lung lining, the esophagus, the heart valves or heart lining, and even the stomach or gallbladder. You should call the physician immediately if the pain radiates to the shoulder, jaw or arms; if you start to run a fever or develop a cough; or if you develop shortness of breath, or other new or alarming symptoms. Follow-up with your primary doctor within 1 week. If you develop worsening pain, trouble breathing, fainting, leg swelling, or any other worsening or alarming symptoms return to the ED immediately. Referrals: [facility] [Primary Care Provider] - Follow up as needed
[2019-10-07 03:51] VITALS: BP 112/79
== END 2019-10-07 03:51 | disposition home or self-care (01) ==
LOC: ER 22:31
DX: R10.9 Unspecified abdominal pain (principal); R07.9 Chest pain, unspecified; Z88.0 Allergy status to penicillin
CPT/HCPCS: 93005; 99285; 36415; 83690; 85025; 80053; 81001; 84484; 71046; 93010; J3490

== ENCOUNTER 2019-10-27 01:58 | Emergency (ER) | payer OTHER ==
--- NOTE | 2019-10-27 03:15 | ER Document Report ---
ED General - General Chief Complaint: Chest Pain Stated Complaint: CHEST PAIN Time Seen by Provider: 10/27/19 03:11 Primary Care Provider: [facility] [Primary Care Provider] - Follow up as needed Mode of Arrival: Ambulatory Information source: Patient TRAVEL OUTSIDE OF THE [place] IN LAST 30 DAYS: No - HPI Onset: Other - over the last week Onset/Duration: Gradual Quality of pain: Pressure Severity: Mild Pain Level: 1 Associated symptoms: Shortness of breath Exacerbated by: Denies Relieved by: Denies Similar symptoms previously: Yes - patient has had chest pains before Recently seen / treated by doctor: Yes - patient seen for chest pain earlier in month Notes: 24 year old male with a history of Anxiety and Hair Loss who recently started back on Finasteride here in the ER for off and on chest pains. The patient says he has been on Finasteride before and never had chest pains. The patient says the chest pains will come and go and are diffusely located in his chest. The patient has mild shortness of breath with the chest pains but he denies fevers, chills, sweats, cough, congestion, radiation of chest pain. - Related Data Allergies/Adverse Reactions: Penicillins Allergy (Unknown, Verified 10/06/19 23:53) Past Medical History - General Information source: Patient - Social History Smoking Status: Never Smoker Frequency of alcohol use: None Drug Abuse: None Family History: Reviewed & Not Pertinent, CAD Psychiatric Medical History: Reports: Hx Anxiety - Immunizations Immunizations up to date: Yes Hx Diphtheria, Pertussis, Tetanus Vaccination: Yes Review of Systems - Review of Systems Constitutional: No symptoms reported EENT: No symptoms reported Cardiovascular: Chest pain Respiratory: No symptoms reported Gastrointestinal: No symptoms reported Genitourinary: No symptoms reported Male Genitourinary: No symptoms reported Musculoskeletal: No symptoms reported Skin: No symptoms reported Hematologic/Lymphatic: No symptoms reported Neurological/Psychological: No symptoms reported -: Yes All other systems reviewed and negative Physical Exam - Vital signs Vitals: Temp 98.7 F 10/27/19 02:01 - Notes Notes: GENERAL: Well-appearing, well-nourished and in no acute distress. HEAD: Atraumatic, normocephalic. EYES: Pupils equal round and reactive to light, extraocular movements intact, sclera anicteric, conjunctiva are normal. ENT: External TMs normal, nares patent, oropharynx clear without exudates. Moist mucous membranes. NECK: Normal range of motion, supple without lymphadenopathy or JVD. LUNGS: Breath sounds clear to auscultation bilaterally and equal. No wheezes rales or rhonchi. HEART: Regular rate and rhythm without murmurs, rubs or gallops. ABDOMEN: Soft, nontender, normoactive bowel sounds. No guarding, no rebound. No masses appreciated. EXTREMITIES: Normal range of motion, no pitting or edema. No clubbing or cyanosis. NEUROLOGICAL: Cranial nerves II through XII grossly intact. Normal speech, normal gait. PSYCH: Normal mood, normal affect. SKIN: Warm, Dry, normal turgor, no rashes or lesions noted. Course - Re-evaluation Re-evalutation: 10/27/19 03:51 The patient is here for chest pains off and on for the last week which he feels have started after starting back on Finasteride for Hair Loss. The patient is low risk for ACS and he is PERC negative making PE unlikely. Patient's EKG is unremarkable and his chest xray shows no acute process. Patient has lab work including a Troponin earlier in the month which were unremarkable. Patient told to follow up with his PCP and to discuss possibly stopping Finasteride to see if this helps reduce his chest pain symptoms. - Vital Signs Vital signs: Temp Pulse Resp BP Pulse Ox 98 F 70 115/74 98 10/27/19 02:03 10/27/19 02:03 10/27/19 02:03 10/27/19 02:03 - Diagnostic Test Radiology reviewed: Image reviewed, Reports reviewed - EKG Interpretation by Me EKG shows normal: Sinus rhythm, [place], Intervals, QRS Complexes, ST-T Waves Rate: Normal Rhythm: NSR Discharge - Discharge Clinical Impression: Chest pain Qualifiers: Chest pain type: unspecified Qualified Code(s): R07.9 - Chest pain, unspecified Condition: Stable Disposition: HOME, SELF-CARE Instructions: Chest Pain of Unclear Cause ([facility]) Additional Instructions: Use Tylenol and Motrin for pain. Follow up with your primary care doctor and tell him/her about your ER visit for chest pains. Consider stopping Finasteride to see if this helps relieve your symptoms.You had an EKG and Chest Xray in the ER today. Consider follow up with a Supplies P[facility] such as Dr. Ndiaye if you continue to have chest pains. Referrals: [facility] [Primary Care Provider] - Follow up as needed CHICA NDIAYE MD [ACTIVE STAFF] - Follow up as needed
[2019-10-27 04:37] VITALS: BP 120/101
--- NOTE | 2019-10-27 04:44 | RADIOLOGY REPORT (SQ) ---
EXAM DESCRIPTION: XR CHEST 2 VIEWS COMPLETED DATE/TME: 10/27/2019 03:43 CLINICAL HISTORY: 24 years, Male, eval for chest pain COMPARISON: 10/07/2019 chest NUMBER OF VIEWS: 2 views of the chest TECHNIQUE: Frontal and lateral views of the chest LIMITATIONS: None. FINDINGS: Heart size is normal. Lungs are clear. No pneumothorax IMPRESSION: Negative chest copyright 2010 [employer]- All Rights Reserved
--- NOTE | 2019-10-27 13:19 | EKG REPORT ---
SEVERITY:- NORMAL ECG - SINUS RHYTHM : Confirmed by: Iram Flaherty 27-Oct-2019 13:18:10
== END 2019-10-27 04:37 | disposition home or self-care (01) ==
LOC: ER 01:58
DX: R07.9 Chest pain, unspecified (principal); R06.02 Shortness of breath; Z88.0 Allergy status to penicillin
CPT/HCPCS: 71046; 93005; 93010; 99285

== ENCOUNTER 2019-11-02 01:51 | Emergency (ER) | payer OTHER ==
[2019-11-02 03:00] LABS: ABSOLUTE EOSINOPHILS # (AUTO) 0.1 10^3/uL (0.0-0.6); ABSOLUTE LYMPHOCYTES (AUTO) 2.6 10^3/uL (0.5-4.7); ABSOLUTE MONOCYTES (AUTO) 0.6 10^3/uL (0.1-1.4); ABSOLUTE NEUT (AUTO) 3.3 10^3/uL (1.7-8.2); BASOPHILS % (AUTO) 0.3 % (0-2); EOSINOPHILS % (AUTO) 1.3 % (0-6); HEMOGLOBIN 15.9 g/dL (13.5-17.0); LYMPHOCYTES % (AUTO) 39.6 % (13-45); MEAN CORPUSCULAR HGB CONC 35.4 g/dL (32.0-36.0); MEAN CORPUSCULAR VOLUME 90 fl (80-97); MONOCYTES % (AUTO) 8.5 % (3-13); PLATELET COUNT 197 10^3/uL (150-450); RED BLOOD COUNT 4.97 10^6/uL (4.35-5.55); RED CELL DISTRIBUTION WIDTH 12.5 % (11.5-14.0); SEGMENTED NEUTROPHILS % (AUTO) 50.3 % (42-78); TOTAL CELLS COUNTED % (AUTO) 100 %; WHITE BLOOD COUNT 6.6 10^3/uL (4.0-10.5)
[2019-11-02 03:13] LABS: ALBUMIN 5.3 g/dL (3.5-5.0); ALKALINE PHOSPHATASE 69 U/L (38-126); ANION GAP 10 (5-19); ASPARTATE AMINO TRANSFERASE 23 U/L (17-59); BILIRUBIN,TOTAL 0.8 mg/dL (0.2-1.3); BLOOD UREA NITROGEN 13 mg/dL (7-20); CARBON DIOXIDE 25 mmol/L (22-30); CHLORIDE 104 mmol/L (98-107); CREATINE KINASE 100 U/L (55-170); GLUCOSE 94 mg/dL (75-110); POTASSIUM 4.4 mmol/L (3.6-5.0)
[2019-11-02 03:23] LABS: CREATINE KINASE MB 0.38 ng/mL (<4.55)
[2019-11-02 03:28] LABS: TROPONIN I < 0.012 ng/mL
--- NOTE | 2019-11-02 05:20 | ER Document Report ---
ED General - General Chief Complaint: Palpitations Stated Complaint: CHEST PAIN/HEART PALPITATIONS Time Seen by Provider: 11/02/19 05:01 [facility] Provider: [facility] [Primary Care Provider] - Follow up as needed Mode of Arrival: Ambulatory Information source: Patient Notes: 24-year-old male presented to ED for complaint of palpitations and chest pain. He states he has had intermittent chest pain for several weeks. He was seen last week for the same time. He states he felt like his heart was beating faster but on his EKG his heart rate was 87. Patient is alert oriented respirations regular nonlabored speaking in full sentences. We will get his chest x-ray to ensure that there is nothing new on the chest x-ray. He was restarted on Finasteride and was seen for the same thing last week. TRAVEL OUTSIDE OF THE [place] IN LAST 30 DAYS: No - HPI Onset: Other - Patient has been seen multiple times for this chest pain. He was seen last week. Onset/Duration: Intermittent Quality of pain: Pressure, Other - Complication Severity: Mild Pain Level: 1 Associated symptoms: Chest pain Exacerbated by: Denies Relieved by: Denies Similar symptoms previously: Yes Recently seen / treated by doctor: Yes - Related Data Allergies/Adverse Reactions: Penicillins Allergy (Unknown, Verified 11/02/19 05:17) Past Medical History - General Information source: Patient - Social History Smoking Status: Former Smoker Drug Abuse: Marijuana Lives with: Family Family History: Reviewed & Not Pertinent, CAD Patient has homicidal ideation: No - Past Medical History Cardiac Medical History: Reports: None Pulmonary Medical History: Reports: None EENT Medical History: Reports: None Neurological Medical History: Reports: None Endocrine Medical History: Reports: None Renal/ Medical History: Reports: None Malignancy Medical History: Reports None GI Medical History: Reports: None Musculoskeletal Medical History: Reports None Skin Medical History: Reports None Psychiatric Medical History: Reports: Hx Anxiety Traumatic Medical History: Reports: None Infectious Medical History: Reports: None Surgical Hx: Negative Past Surgical History: Reports: None - Immunizations Immunizations up to date: Yes Hx Diphtheria, Pertussis, Tetanus Vaccination: Yes Review of Systems - Review of Systems Constitutional: No symptoms reported EENT: No symptoms reported Cardiovascular: Palpitations Respiratory: No symptoms reported Gastrointestinal: No symptoms reported Genitourinary: No symptoms reported Male Genitourinary: No symptoms reported Musculoskeletal: No symptoms reported Skin: No symptoms reported Hematologic/Lymphatic: No symptoms reported Neurological/Psychological: No symptoms reported -: Yes All other systems reviewed and negative Physical Exam - Vital signs Vitals: Temp Pulse Resp BP Pulse Ox 98.7 F 81 20 137/92 H 100 11/02/19 01:56 11/02/19 01:56 11/02/19 01:56 11/02/19 01:56 11/02/19 01:56 Interpretation: Normal - General General appearance: Appears well, Alert - HEENT Head: Normocephalic, Atraumatic Eyes: Normal Pupils: PERRL - Respiratory Respiratory status: No respiratory distress Chest status: Nontender Breath sounds: Normal Chest palpation: Normal - Cardiovascular Rhythm: Regular Heart sounds: Normal auscultation Murmur: No - Abdominal Inspection: Normal Distension: No distension Bowel sounds: Normal Tenderness: Nontender Organomegaly: No organomegaly - Back Back: Normal, Nontender - Extremities General upper extremity: Normal inspection, Nontender, Normal color, Normal ROM, Normal temperature General lower extremity: Normal inspection, Nontender, Normal color, Normal ROM, Normal temperature, Normal weight bearing. No: Arely's sign - Neurological Neuro grossly intact: Yes Cognition: Normal Orientation: AAOx4 Brian Coma Scale Eye Opening: Spontaneous Brian Coma Scale Verbal: Oriented [place] Coma Scale Motor: Obeys Commands [place] Coma Scale Total: 15 Speech: Normal Motor strength normal: LUE, RUE, LLE, RLE Sensory: Normal - Psychological Associated symptoms: Normal affect, Normal mood - Skin Skin Temperature: Warm Skin Moisture: Dry Skin Color: Normal Course - Re-evaluation Re-evalutation: 11/02/19 06:56 I have discussed x-ray EKG and lab results with patient and given patient a copy of the lab reports and x-ray report. He has been instructed to please follow-up with his primary care doctor and to follow-up with Julisa Casillas in [place] if he continues to take hormone treatments. Medications that are affecting his hormones. She states he is no longer feeling any palpitations or chest pain. He has been seen here several times for the same complaint. - Vital Signs Vital signs: Temp Pulse Resp BP Pulse Ox 97.7 F 69 16 135/75 H 100 11/02/19 05:02 11/02/19 05:02 11/02/19 05:02 11/02/19 05:02 11/02/19 05:02 - Laboratory Result Diagrams: 11/02/19 02:45 11/02/19 02:45 Laboratory results interpreted by me: 11/02/19 02:45 Albumin 5.3 H - Diagnostic Test Radiology reviewed: Image reviewed, Reports reviewed Discharge - Discharge Clinical Impression: Chest pain Qualifiers: Chest pain type: unspecified Qualified Code(s): R07.9 - Chest pain, unspecified Condition: Stable Disposition: HOME, SELF-CARE Additional Instructions: CHEST PAIN OF UNCLEAR CAUSE: The exact cause of your chest pain isn't clear. Fortunately, there is no evidence of a dangerous medical condition. Further testing may be required to find the source of the pain. Most often, we find that this pain is coming from the chest wall -- the muscles or rib joints in the chest. But chest pain can come from the lung and lung lining, the esophagus, the heart valves or heart lining, and even the stomach or gallbladder. Rest. Eat lightly until the pain is gone. We may prescribe medicine for pain and inflammation. You should call the physician immediately if the pain radiates to the shoulder, jaw or arms; if you start to run a fever or develop a cough; or if you develop shortness of breath, or other new or alarming symptoms. NORMAL EXAM AND WORKUP: At this time, your examination and workup show no significant abnormality. No significant abnormal physical findings were noted. All laboratory, EKG, and imaging (x-ray, CT scans, ultrasound) studies that were ordered show no significant abnormality. Although your examination and all studies that were ordered showed no significant abnormal finding, there are no examinations and no studies that are 100% accurate. There is always the possibility that some abnormality could exist and not be detected with physical examination or within the limits and capabilities of laboratory and other studies. You should return or follow up as you were instructed on your visit today for further evaluation if your symptoms do not resolve. Given you a copy of your labs and chest x-ray. There is no acute abnormalities to explain your chest pain today. You state the pain has been relieved and you are no longer feeling palpitations. Please follow-up with endocrinology as we discussed. FOLLOW-UP CARE: If you have been referred to a physician for follow-up care, call the physicians office for an appointment as you were instructed or within the next two days. If you experience worsening or a significant change in your symptoms, notify the physician immediately or return to the Emergency Department at any time for re-evaluation. Referrals: [facility] [Primary Care Provider] - Follow up as needed
--- NOTE | 2019-11-02 05:59 | RADIOLOGY REPORT (SQ) ---
Chest 2 view on 11/02/2019 at 5:18 AM CLINICAL INDICATION: Chest pain COMPARISON: 10/27/2019 FINDINGS: The lungs are clear. Cardiac, hilar and mediastinal contours are within normal limits. Pulmonary vascularity is within normal limits. No bony abnormality is noted. IMPRESSION: No active disease.
[2019-11-02 07:03] VITALS: BP 112/86
--- NOTE | 2019-11-02 14:44 | EKG REPORT ---
SEVERITY:- ABNORMAL ECG - SINUS RHYTHM BIATRIAL ABNORMALITIES CONSIDER RIGHT VENTRICULAR HYPERTROPHY : Confirmed by: Marisela Rodriges MD 02-Nov-2019 14:42:43
== END 2019-11-02 07:02 | disposition home or self-care (01) ==
LOC: ER 01:51
DX: R07.89 Other chest pain (principal); R00.2 Palpitations; F12.10 Cannabis abuse, uncomplicated; Z88.0 Allergy status to penicillin; Z87.891 Personal history of nicotine dependence
CPT/HCPCS: 36415; 71046; 80053; 82550; 82553; 84484; 85025; 93005; 93010; 99285

== ENCOUNTER 2020-02-07 05:13 | Emergency (ER) | payer SELFPAY ==
--- NOTE | 2020-02-07 06:37 | EKG REPORT ---
SEVERITY:- BORDERLINE ECG - SINUS RHYTHM BORDERLINE T ABNORMALITIES, ANT-LAT LEADS PRECORDIAL LEAD PLACEMENT ERROR : Confirmed by: Adolph Kang MD 07-Feb-2020 06:36:55
[2020-02-07 06:39] LABS: ABSOLUTE EOSINOPHILS # (AUTO) 0.1 10^3/uL (0.0-0.6); ABSOLUTE MONOCYTES (AUTO) 0.6 10^3/uL (0.1-1.4); ABSOLUTE NEUT (AUTO) 3.9 10^3/uL (1.7-8.2); BASOPHILS % (AUTO) 0.2 % (0-2); EOSINOPHILS % (AUTO) 1.3 % (0-6); HEMATOCRIT 42.6 % (37.9-51.0); LYMPHOCYTES % (AUTO) 30.8 % (13-45); MEAN CORPUSCULAR HEMOGLOBIN 31.6 pg (27.0-33.4); MEAN CORPUSCULAR HGB CONC 35.1 g/dL (32.0-36.0); MEAN CORPUSCULAR VOLUME 90 fl (80-97); MONOCYTES % (AUTO) 8.5 % (3-13); PLATELET COUNT 184 10^3/uL (150-450); RED BLOOD COUNT 4.74 10^6/uL (4.35-5.55); RED CELL DISTRIBUTION WIDTH 12.6 % (11.5-14.0); SEGMENTED NEUTROPHILS % (AUTO) 59.2 % (42-78); TOTAL CELLS COUNTED % (AUTO) 100 %; WHITE BLOOD COUNT 6.5 10^3/uL (4.0-10.5)
[2020-02-07 07:03] LABS: ALBUMIN 4.5 g/dL (3.5-5.0); ALKALINE PHOSPHATASE 56 U/L (38-126); ANION GAP 11 (5-19); ASPARTATE AMINO TRANSFERASE 20 U/L (17-59); BILIRUBIN,DIRECT 0.2 mg/dL (0.0-0.4); BILIRUBIN,TOTAL 0.8 mg/dL (0.2-1.3); BLOOD UREA NITROGEN 8 mg/dL (7-20); CALCIUM 9.5 mg/dL (8.4-10.2); CARBON DIOXIDE 27 mmol/L (22-30); CHLORIDE 102 mmol/L (98-107); CREATINE KINASE 66 U/L (55-170); GLUCOSE 104 mg/dL (75-110); POTASSIUM 3.7 mmol/L (3.6-5.0); TOTAL PROTEIN 6.6 g/dL (6.3-8.2)
[2020-02-07 07:17] LABS: CREATINE KINASE MB 0.31 ng/mL (<4.55)
[2020-02-07 07:19] LABS: TROPONIN I < 0.012 ng/mL
[2020-02-07 08:10] LABS: APPEARANCE,URINE TURBID; BILIRUBIN,URINE NEGATIVE (NEGATIVE); COLOR,URINE YELLOW; GLUCOSE, URINE NEGATIVE (NEGATIVE); KETONES,URINE NEGATIVE (NEGATIVE); LEUKOCYTE ESTERASE,URINE NEGATIVE (NEGATIVE); NITRITE,URINE NEGATIVE (NEGATIVE); PROTEIN,URINE 30 mg/dL (NEGATIVE); URINE SPECIFIC GRAVITY 1.016
--- NOTE | 2020-02-07 08:19 | RADIOLOGY REPORT (SQ) ---
EXAM DESCRIPTION: CHEST 2 VIEWS IMAGES COMPLETED DATE/TIME: 02/07/2020 8:11 am REASON FOR STUDY: heart fluttering COMPARISON: 11/02/2019 EXAM PARAMETERS: NUMBER OF VIEWS: two views TECHNIQUE: Digital Frontal and Lateral radiographic views of the chest acquired. RADIATION DOSE: NA LIMITATIONS: none FINDINGS: LUNGS AND PLEURA: No opacities, masses or pneumothorax. No pleural effusion. MEDIASTINUM AND HILAR STRUCTURES: No masses or contour abnormalities. HEART AND VASCULAR STRUCTURES: Heart normal size. No evidence for failure. BONES: No acute findings. HARDWARE: None in the chest. OTHER: No other significant finding. IMPRESSION: Normal chest radiograph. TECHNICAL DOCUMENTATION: JOB ID: [id number] [employer]- All Rights Reserved Reading location - IP/workstation name: [email or web address]
--- NOTE | 2020-02-07 09:33 | ER Document Report ---
Entered by TRACY ROPER SCRIBE 02/07/20 0619 Acting as scribe for:DAPHNE CONNORS MD ED General - General Chief Complaint: Chest Pain Stated Complaint: CHEST PAIN Primary Care Provider: [facility] [NO LOCAL MD] - Follow up as needed Mode of Arrival: Ambulatory Information source: Patient Notes: This 24 year old male patient with no significant past medical history presents to the ED today for evaluation of "heart fluttering." Patient states that prior to arrival, he felt like his heart "wasn't beating properly and it freaked me out." He reports a family history of cardiac disease. Patient also mentions pressure to his right flank that "causes pain from time to time" and constipation off and on for the past x3 months. He states that he has been constipated ever since he started taking Finasteride for hair loss. Denies fever, chills, weight loss, nausea/vomiting, back pain, rash, or burning with urination. He admits to marijuana use, but denies ETOH or tobacco. TRAVEL OUTSIDE OF THE [place] IN LAST 30 DAYS: No - Related Data Allergies/Adverse Reactions: Penicillins Allergy (Unknown, Verified 11/02/19 05:17) Past Medical History - General Information source: Patient, [facility] Records - Social History Smoking Status: Former Smoker Cigarette use (# per day): No Chew tobacco use (# tins/day): No Smoking Education Provided: No Frequency of alcohol use: None Drug Abuse: Marijuana Family History: Reviewed & Not Pertinent, CAD Psychiatric Medical History: Reports: Hx Anxiety - Immunizations Immunizations up to date: Yes Hx Diphtheria, Pertussis, Tetanus Vaccination: Yes Review of Systems - Review of Systems Constitutional: See HPI. denies: Chills, Fever, Weight loss EENT: No symptoms reported Cardiovascular: See HPI, Other - Heart fluttering Respiratory: No symptoms reported Gastrointestinal: denies: Nausea, Vomiting Genitourinary: See HPI. denies: Burning Male Genitourinary: No symptoms reported Musculoskeletal: See HPI. denies: Back pain Skin: See HPI. denies: Rash Hematologic/Lymphatic: No symptoms reported Neurological/Psychological: No symptoms reported -: Yes All other systems reviewed and negative Physical Exam - Vital signs Vitals: Temp Pulse Resp BP Pulse Ox 97.9 F 77 15 124/82 100 02/07/20 05:29 02/07/20 05:29 02/07/20 05:29 02/07/20 05:29 02/07/20 05:29 Interpretation: Normal - General General appearance: Appears well, Alert In distress: None - HEENT Head: Normocephalic, Atraumatic Eyes: Normal Pupils: PERRL - Respiratory Respiratory status: No respiratory distress Chest status: Nontender Breath sounds: Normal Chest palpation: Normal - Cardiovascular Rhythm: Regular Heart sounds: Normal auscultation, S1 appreciated, S2 appreciated Murmur: No Friction rub: No Gallop: None auscultated - Abdominal Inspection: Normal Distension: No distension Bowel sounds: Normal Tenderness: Nontender - Abdomen soft Organomegaly: No organomegaly - Back Back: Normal, Nontender. No: CVA tenderness - Extremities General upper extremity: Normal inspection General lower extremity: Normal inspection. No: Edema - Neurological Neuro grossly intact: Yes Orientation: AAOx4 Brian Coma Scale Eye Opening: Spontaneous Brian Coma Scale Verbal: Oriented Brian Coma Scale Motor: Obeys Commands [place] Coma Scale Total: 15 - Psychological Associated symptoms: Normal affect, Normal mood - Skin Skin Temperature: Warm Skin Moisture: Dry Skin Color: Normal Course - Re-evaluation Re-evalutation: 02/07/20 09:30 Patient resting comfortably not showing any signs of distress at this time. - Vital Signs Vital signs: Temp Pulse Resp BP Pulse Ox 97.9 F 77 14 105/67 98 02/07/20 05:29 02/07/20 05:29 02/07/20 08:01 02/07/20 08:01 02/07/20 08:01 02/07/20 09:30 Vital signs stable - Laboratory Result Diagrams: 02/07/20 06:17 02/07/20 06:17 Laboratory results interpreted by me: 02/07/20 07:45 Urine Protein 30 H Urine Urobilinogen 2.0 H Laboratories essentially within normal limits patient does have urine protein of 30 urobilinogen two-point. Patient has no abdominal pain patient has a known history of proteinuria. - Diagnostic Test Radiology reviewed: Image reviewed, Reports reviewed Radiology results interpreted by me: 02/07/20 08:37 Chest X-Ray 02/07/20 07:43 IMPRESSION: Normal chest radiograph. 02/07/20 09:30 Normal chest x-ray no acute process - EKG Interpretation by Me Additional EKG results interpreted by me: 02/07/20 09:31 Twelve-lead EKG shows normal sinus rhythm rate of 72 right ventricular hypertrophy consideration consider anterior infarct. Normal [place] interval QRS within normal limits as well and QT interval within normal range no evidence for an acute STEMI. Discharge - Discharge Clinical Impression: Palpitation, Proteinuria Condition: Stable Disposition: HOME, SELF-CARE Additional Instructions: Palpitations (Irregular/Rapid Heartrate) Irregular or rapid heartbeat is called "palpitation." To diagnose the cause of palpitation, we have to "catch it in the act" with an EKG. Sinus Tachycardia: This is a rapid (but NORMAL) rhythm that can be due to fever, pain, anxiety, lack of sleep, over-exertion, or drugs. Cold medications, caffeine, and diet pills are particularly likely to cause tachycardia. Usually, all that's required is rest, reassurance, and avoiding caffeine, alcohol, nicotine, and unnecessary medicines. Paroxysmal Atrial Tachycardia (PAT): This abnormally rapid heartbeat is caused by a "short circuit" in the electrical system of the heart. It is not dangerous, unless other heart disease is present. These attacks of PAT may occur occasionally for years. Medication is available for treatment. Paroxysmal Atrial Fibrillation or Atrial Flutter: This is irregular electrical activity in the upper heart chamber. These abnormal rhythms often occur with valve disease or in hearts damaged by hardening of the arteries. These rhythms usually require further testing, for example a cardiac echo. Premature Beats: Extra beats occur more commonly after caffeine, nicotine, alcohol, cold pills, diet pills. Emotional stress or fatigue also provoke them. Extra beats are only dangerous when heart disease is present. They usually need no treatment. If they're frequent, or if evidence of heart disease develops, medication can be given to suppress them. If we were unable to "catch" the palpitations on EKG, you should try to get an EKG immediately if the symptoms begin again. Contact the physician at once if you develop persistent lightheadedness, shortness of breath, chest pain, or swelling of the ankles. Referrals: [facility] [NO LOCAL MD] - Follow up as needed I personally performed the services described in the documentation, reviewed and edited the documentation which was dictated to the scribe in my presence, and it accurately records my words and actions.
[2020-02-07 09:35] VITALS: BP 110/60
== END 2020-02-07 09:43 | disposition home or self-care (01) ==
LOC: ER 05:13
DX: R00.2 Palpitations (principal); R80.9 Proteinuria, unspecified; I51.7 Cardiomegaly; K59.00 Constipation, unspecified; F12.10 Cannabis abuse, uncomplicated; Z87.891 Personal history of nicotine dependence; Z88.0 Allergy status to penicillin; Z82.49 Family history of ischemic heart disease and other diseases of the circulatory system
CPT/HCPCS: 36415; 71046; 80053; 81001; 82550; 82553; 84484; 85025; 93005; 93010; 99285

== ENCOUNTER 2020-05-31 22:50 | Emergency (ER) | payer SELFPAY ==
--- NOTE | 2020-05-31 23:30 | ER Document Report ---
ED Medical Screen (RME) - General Chief Complaint: Abdominal Pain Stated Complaint: ABDOMINAL PAIN Time Seen by Provider: 05/31/20 23:23 Primary Care Provider: DANAY BRAUN MD [Primary Care Provider] - Follow up as needed Notes: Patient presents complaining of palpitations and chest pains this evening does have improved at this time. Patient reports right upper quadrant tenderness off and on for the past month. Patient states he had pale-colored stools for the past 6 months. I have greeted and performed a rapid initial assessment of this patient. A comprehensive ED assessment and evaluation of the patient, analysis of test results and completion of the medical decision making process will be conducted by additional ED providers. TRAVEL OUTSIDE OF THE [place] IN LAST 30 DAYS: No - Related Data Allergies/Adverse Reactions: Penicillins Allergy (Unknown, Verified 11/02/19 05:17) Past Medical History - Social History Frequency of alcohol use: None Drug Abuse: Marijuana Psychiatric Medical History: Reports: Hx Anxiety - Immunizations Immunizations up to date: Yes Hx Diphtheria, Pertussis, Tetanus Vaccination: Yes Physical Exam - Vital signs Vitals: Temp Pulse Resp BP Pulse Ox 99.0 F 108 H 16 135/86 H 98 05/31/20 22:56 05/31/20 22:56 05/31/20 22:56 05/31/20 22:56 05/31/20 22:56 - Abdominal Tenderness: Tender - Right upper quadrant Course - Vital Signs Vital signs: Temp Pulse Resp BP Pulse Ox 99.0 F 108 H 16 135/86 H 98 05/31/20 22:56 05/31/20 22:56 05/31/20 22:56 05/31/20 22:56 05/31/20 22:56 Doctor's Discharge - Discharge Referrals: DANAY BRAUN MD [Primary Care Provider] - Follow up as needed
[2020-06-01 00:02] LABS: ABSOLUTE LYMPHOCYTES (AUTO) 2.9 10^3/uL (0.5-4.7); ABSOLUTE MONOCYTES (AUTO) 0.7 10^3/uL (0.1-1.4); BASOPHILS % (AUTO) 0.4 % (0-2); EOSINOPHILS % (AUTO) 0.5 % (0-6); HEMATOCRIT 45.9 % (37.9-51.0); HEMOGLOBIN 15.8 g/dL (13.5-17.0); LYMPHOCYTES % (AUTO) 33.3 % (13-45); MEAN CORPUSCULAR HEMOGLOBIN 31.3 pg (27.0-33.4); MEAN CORPUSCULAR HGB CONC 34.4 g/dL (32.0-36.0); MEAN CORPUSCULAR VOLUME 91 fl (80-97); MONOCYTES % (AUTO) 7.7 % (3-13); PLATELET COUNT 205 10^3/uL (150-450); RED BLOOD COUNT 5.05 10^6/uL (4.35-5.55); RED CELL DISTRIBUTION WIDTH 12.8 % (11.5-14.0); SEGMENTED NEUTROPHILS % (AUTO) 58.1 % (42-78); TOTAL CELLS COUNTED % (AUTO) 100 %; WHITE BLOOD COUNT 8.6 10^3/uL (4.0-10.5)
[2020-06-01 00:20] LABS: APPEARANCE,URINE CLEAR; BILIRUBIN,URINE NEGATIVE (NEGATIVE); COLOR,URINE YELLOW; GLUCOSE, URINE NEGATIVE (NEGATIVE); KETONES,URINE 20 mg/dL (NEGATIVE); LEUKOCYTE ESTERASE,URINE NEGATIVE (NEGATIVE); NITRITE,URINE NEGATIVE (NEGATIVE); PROTEIN,URINE NEGATIVE (NEGATIVE); URINE SPECIFIC GRAVITY 1.011; UROBILINOGEN,URINE NEGATIVE mg/dL (<2.0)
[2020-06-01 00:23] LABS: ALBUMIN 5.4 g/dL (3.5-5.0); ALKALINE PHOSPHATASE 64 U/L (38-126); ANION GAP 11 (5-19); ASPARTATE AMINO TRANSFERASE 25 U/L (17-59); BILIRUBIN,DIRECT 0.2 mg/dL (0.0-0.4); BILIRUBIN,TOTAL 1.1 mg/dL (0.2-1.3); BLOOD UREA NITROGEN 10 mg/dL (7-20); CALCIUM 10.1 mg/dL (8.4-10.2); CARBON DIOXIDE 26 mmol/L (22-30); CHLORIDE 101 mmol/L (98-107); GLUCOSE 129 mg/dL (75-110); POTASSIUM 3.6 mmol/L (3.6-5.0); TOTAL PROTEIN 8.4 g/dL (6.3-8.2)
--- NOTE | 2020-06-01 00:28 | RADIOLOGY REPORT (SQ) ---
CHEST X-RAY 2 view on 06/01/2020 at 12:06 AM CLINICAL INDICATION: Chest pain COMPARISON: 02/07/2020 FINDINGS: The lungs are clear. Cardiac, hilar and mediastinal contours are within normal limits. Pulmonary vascularity is within normal limits. No bony abnormality is noted. IMPRESSION: No active disease.
--- NOTE | 2020-06-01 00:54 | RADIOLOGY REPORT (SQ) ---
EXAM DESCRIPTION: US ABDOMEN LIMITED COMPLETED DATE/TME: 06/01/2020 00:19 CLINICAL HISTORY: 25 years Male, RUQ pain Comparison:Sep 24 2019 LIMITATIONS: None. FINDINGS: Gallbladder, negative sonographic Chahal's test, liver, a 0.1-cm diameter common bile duct, no intrahepatic ductal dilation, hepatopetal patent flow of the portal vein, 11-cm right kidney, pancreas, visualized vasculature/abdominal aorta, and no significant ascites appear otherwise unremarkable. IMPRESSION: Normal RUQ-Abdominal Sonogram.
--- NOTE | 2020-06-01 02:35 | ER Document Report ---
ED GI/ - General Chief Complaint: Abdominal Pain Stated Complaint: ABDOMINAL PAIN Time Seen by Provider: 05/31/20 23:23 Primary Care Provider: DANAY BRAUN MD [Primary Care Provider] - Follow up as needed Mode of Arrival: Ambulatory Information source: Patient Notes: PRIOR ED VISIT for SAME SX Chief Complaint: Abdominal Pain Stated Complaint: ABDOMINAL PAIN,HEART RACING Time Seen by Provider: 09/23/19 22:51 Primary Care Provider: [facility] [Primary Care Provider] - Follow up as needed Mode of Arrival: Ambulatory Information source: Patient Notes: DEMETRIA Garduno notes pt reports palpitations and "irregular heart beats" since yesterday and abdominal pain that started today. Pt stated that the epigastric pain was so severe that he experienced "cold sweats". Pt appears anxious during assessment. Pt denies nausea, vomiting or fever. Honey REYES notes HPI: 24-year-old male presenting to the emergency department complaining of approximately 24 hours of upper abdominal discomfort slight nausea no vomiting. No fever. Patient states that he also feels like his heart is beating irregularly. States this is happened intermittently over the last several years most recently he felt like it was beating very quickly a week ago. Patient has not had this evaluated by a PCP. my notes 24-year-old male arrives with chief complaint of having 3 to 4 weeks of having caffeine withdrawal in early July. He says been drinking caffeine since he was a child and stopped doing this because of heart palpitations and anxiety. He was complaining of heart arrhythmias as well and pointing to his right upper quadrant for his chest pain. His mother has thyroid problems and heart problems and is around 66 years old. His father is heavyset and has some hypertension. Patient "has been smoking cigarettes since he was a youth and stopped around 2-1/2 years ago after graduating to [employer] and then to vape pens." Patient reports she has been having visual blurring and cephalgia as well as eye floaters. He denies any back pain but is quite slender. His blood pressure is 120/80 and his heart rate was around 95. He does admit to smoking marijuana but denies any PCP cocaine speed or methamphetamines. Please note this patient was a marijuana smoker and was advised to follow-up with Dr. Otoole and to take propranolol for his tachycardia. Patient refused prescription on last visit when I saw this patient. 05/31/20 23:27 - ED Nursing Note by DWAIN JEFFERS [facility] Num: [id number] : 1995 Patient Age: [age] Y/O MALE, WITH HX OF CHRONIC ABD PAIN, PRESENTS C/O ODD COLORED STOOL. NO N/V/D. INAD. AMB INTO TRIAGE. ED Medical Screen (Jonnie Notes) - General Chief Complaint: Abdominal Pain Stated Complaint: ABDOMINAL PAIN Time Seen by Provider: 05/31/20 23:23 Primary Care Provider: DANAY BRAUN MD [Primary Care Provider] - Follow up as needed Notes: Patient presents complaining of palpitations and chest pains this evening does have improved at this time. Patient reports right upper quadrant tenderness off and on for the past month. Patient states he had pale-colored stools for the past 6 months. MY NOTES 25-year-old male arrives with chief complaint of having discolored toenails for several months left greater than right as well as some splintering of his fingernails. He has been looking online under [employer] and advises that he thinks he may have some fungal infections in his nails. Also he has been having pale-colored stools for around 6 months. He also complains of right upper quadrant abdominal pain and has pale conjunctiva. I have seen this patient in the past and advised him that he needs a personal doctor to follow-up with. Patient reports ever since he stopped his finasteride he has had problems with his stool color. He reports a cousin has some rheumatoid arthritis but thus far has no painful joints. He is very thin and appears malnourished but denies any appetite changes. He has ketones in his urine and his glucose is 129 his labs otherwise are negative except for increased albumin and total protein. Advised him of these test results. He appeared to understand. Also advised him of a negative ultrasound to his liver and surrounding areas as read by radiologist. Patient does present with tachycardia. TRAVEL OUTSIDE OF THE [place] IN LAST 30 DAYS: No - HPI Patient complains to provider of: Abdominal pain - Related Data Allergies/Adverse Reactions: Penicillins Allergy (Unknown, Verified 11/02/19 05:17) Past Medical History - Social History Smoking Status: Former Smoker Frequency of alcohol use: None Drug Abuse: Marijuana Family History: Reviewed & Not Pertinent, CAD Psychiatric Medical History: Reports: Hx Anxiety - Immunizations Immunizations up to date: Yes Hx Diphtheria, Pertussis, Tetanus Vaccination: Yes Review of Systems - Review of Systems Constitutional: See HPI, Weakness, Recent illness EENT: No symptoms reported Cardiovascular: No symptoms reported Respiratory: No symptoms reported Gastrointestinal: See HPI, Abdominal pain, Other - Pale-colored stools Genitourinary: No symptoms reported Male Genitourinary: No symptoms reported Musculoskeletal: No symptoms reported Skin: See HPI, Change in color, Other - Also thick and yellowed toenails according to patient. He also advises he has blistering of his fingernails. Hematologic/Lymphatic: No symptoms reported Neurological/Psychological: No symptoms reported Physical Exam - Vital signs Vitals: Temp Pulse Resp BP Pulse Ox 99.0 F 108 H 16 135/86 H 98 05/31/20 22:56 05/31/20 22:56 05/31/20 22:56 05/31/20 22:56 05/31/20 22:56 Interpretation: Hypertensive, Tachycardic - General General appearance: Alert, Anxious In distress: Mild - HEENT Head: Normocephalic, Atraumatic Eyes: Normal Pupils: PERRL - Respiratory Respiratory status: No respiratory distress Chest status: Nontender Breath sounds: Normal Chest palpation: Normal - Cardiovascular Rhythm: Tachycardia Heart sounds: Normal auscultation Murmur: No - Abdominal Inspection: Normal Distension: No distension Bowel sounds: Normal Tenderness: Nontender Organomegaly: No organomegaly - Rectal Prostate: Other - Back Back: Normal, Nontender - Extremities General upper extremity: Normal inspection, Nontender, Normal color, Normal ROM, Normal temperature General lower extremity: Normal inspection, Nontender, Normal color, Normal ROM, Normal temperature, Normal weight bearing, Other - Toenails have no obvious signs of onychial mycosis of his toenails or lesions in his fingernails.. No: Arely's sign - Neurological Neuro grossly intact: Yes Cognition: Normal Orientation: AAOx4 [place] Coma Scale Eye Opening: Spontaneous [place] Coma Scale Verbal: Oriented Brian Coma Scale Motor: Obeys Commands Brian Coma Scale Total: 15 Speech: Normal Motor strength normal: LUE, RUE, LLE, RLE Sensory: Normal - Psychological Associated symptoms: Normal mood - Skin Skin Temperature: Warm Skin Moisture: Dry Skin Color: Normal Course - Vital Signs Vital signs: Temp Pulse Resp BP Pulse Ox 98.6 F 107 H 16 141/79 H 99 06/01/20 02:01 06/01/20 02:01 06/01/20 02:01 06/01/20 02:01 06/01/20 02:01 - Laboratory Results Result Diagrams: 05/31/20 23:33 05/31/20 23:33 Laboratory Results Interpreted: 05/31/20 05/31/20 23:33 23:33 Glucose 129 H Total Protein 8.4 H Albumin 5.4 H Urine Ketones 20 H Critical Laboratory Results Reviewed: Yes Attending or Supervising Physician who Reviewed Labs: RAE CARMONA JR - Radiology Results Critical Radiology Results Reviewed: No Critical Results Attending or Supervising Physician who Reviewed Radiology: RAE CARMONA JR - EKG Interpretation by Me EKG shows normal: Sinus rhythm Rate: Tachycardia Rhythm: NSR - 70 bpm sinus arrhythmia with rates ranging between 60-99. Also consider right ventricular hypertrophy but no ST elevation. Patient does have mild ST depression on 2 3 and anterior leads. This was read by myself and I agree with the EKG machine. Critical Care Note - Critical Care Note Comments: I discussed lab EKG x-ray ultrasound findings with patient. Discharge - Discharge Clinical Impression: Urine ketones, Tachycardia, Elevation in total protein and albumin Abdominal pain Qualifiers: Abdominal location: unspecified location Qualified Code(s): R10.9 - Unspecified abdominal pain Condition: Stable Disposition: HOME, SELF-CARE Additional Instructions: Increased fluids to try to get decreased your urinary ketones acetones. This may cause you to have increased heart rate. Try to stop smoking marijuana because this may cause abdominal pain. Your blood albumin and total protein are elevated and this may be because a person is dehydrated. Urinary ketones may indicate dehydration as well. Other reasons for high albumin and total protein may be autoimmune diseases kidney disease or liver disease. Your labs today do not indicate any liver disease or kidney disease. Follow-up with your doctor for any further work-up. Please apply your Lotrisone cream to your toenails and to your fingernails. Do this twice a day in order to help decrease "thickness"/and keep funguses away of your nails. Prescriptions: Clotrimazole 1% Cream [Lotrimin 1% Cream] 1 applic TOP BID #15 gram Referrals: DANAY BRAUN MD [Primary Care Provider] - Follow up as needed
[2020-06-01 03:35] LABS: URINE AMPHETAMINES SCREEN NEGATIVE; URINE BARBITURATES SCREEN NEGATIVE; URINE BENZODIAZEPINES SCREEN NEGATIVE; URINE COCAINE SCREEN NEGATIVE; URINE METHADONE SCREEN NEGATIVE; URINE PHENCYCLIDINE SCREEN NEGATIVE
[2020-06-01 03:38] LABS: URINE MARIJUANA (THC) SCREEN UNCONFIRMED POSITIVE
[2020-06-01 04:24] VITALS: BP 136/73
--- NOTE | 2020-06-01 15:05 | EKG REPORT ---
SEVERITY:- BORDERLINE ECG - SINUS ARRHYTHMIA, RATE 60-99 : Confirmed by: Je Reno MD 01-Jun-2020 15:04:03
== END 2020-06-01 04:22 | disposition home or self-care (01) ==
LOC: ER 22:50
DX: R82.4 Acetonuria (principal); R10.11 Right upper quadrant pain; R10.13 Epigastric pain; R79.89 Other specified abnormal findings of blood chemistry; R00.0 Tachycardia, unspecified; Z88.0 Allergy status to penicillin
CPT/HCPCS: 36415; 71046; 76705; 80053; 80307; 81001; 83690; 83735; 84443; 85025; 93005; 93010; 99285